=== PATIENT | female | born 1950 | race Caucasian/White ===

== ENCOUNTER 2023-11-30 03:04 | Inpatient (IN) | payer MEDICARE, OTHER, SELFPAY ==
[2023-11-30] VITALS (11 sets, daily range): BP systolic 108–188; BP diastolic 62–124; BMI 32.3
--- NOTE | 2023-11-30 00:43 | ED.GENMED ---
History of Present Illness
<Nas Garcia, DO - Last Filed: 11/30/23 02:00>
General
Chief Complaint: Blood Pressure Problem
Source: patient
Exam Limitations: none
Time Seen by Provider: 11/30/23 00:33
History of Present Illness
History of Present Illness:
See MDM
Past History
<Nas Garcia, DO - Last Filed: 11/30/23 02:00>
Past History
ED Past Medical History: GERD, Hypercholesterolemia and Seizures
ED Past Surgical History: None
Social History
Tobacco: Non-smoker
Alcohol: None
Phy Exam
<Nas Garcia, DO - Last Filed: 11/30/23 02:00>
Physical Exam
Physical Exam:
See MDM
Scores
<Nas Garcia, DO - Last Filed: 11/30/23 02:00>
[id number] Score for Afib Stroke Risk
Age in Years (65=0, 65-74=1, >/=75=2): 65-74
Sex (Female=+1): Female
Congestive Heart Failure History (Yes=+1): No
Hypertension History (Yes=+1): No
Stroke/TIA/Thromboembolism History (Yes=+2): No
Vascular Disease History (Yes=+1): No
Diabetes Mellitus (Yes=+1): No
Score: 2
Anticoagulation Recommendations: Recommend anticoagulation (as validated in nonvalvular fib)
<Chaparro Harris MD, Resident - Last Filed: 11/30/23 22:03>
[id number] Score for Afib Stroke Risk
Score: 2
Anticoagulation Recommendations: Recommend anticoagulation (as validated in nonvalvular fib)
Course
<Nas Garcia, DO - Last Filed: 11/30/23 02:00>
Orders/Labs/Results
Orders:
Orders
11/30/23 00:41
Electrocardiogram (*1) Urgent
Reason for Study: Hypertension, Benign
CT Head W/o Iv Contrast Urgent
Comment:
Reason For Exam: Left side headache
EKG- Treatment ONCE
11/30/23 00:46
Complete Blood Count/With Diff Urgent
Comprehensive Metabolic Panel Urgent
Magnesium Urgent
TSH Reflex To Free T4 Urgent
Troponin I Urgent
11/30/23 00:55
Diltiazem HCl [Cardizem] 20 mg IV NOW STA
11/30/23 01:29
0.9% Sodium Chloride 1000 ml [Nss] 1,000 ml IV BOLUS
Diltiazem 125 mg/125 ml Nss [Cardizem] 125 mg in 125 ml IV NOW
Initial dose in mg/hr, then titrate:: 5
Titrate to keep:: Heart rate 80-100 bpm
Titrate by mg/hr:: 5 mg/hr
Frequency of titrations (minutes):: 15
Maximum dose in mg/hr:: 15
Diltiazem HCl [Cardizem] 20 mg IV NOW STA
11/30/23 01:36
Apixaban [Eliquis] 5 mg PO ONCE ONE
11/30/23 01:49
PTT Urgent
Prothrombin Time Urgent
11/30/23 02:12
Admit/Transfer Patient As Directed
Co-Sign Provider:
Level of Care: Inpatient admission
Assign to:: IVU
Physician / Group: Nick
Diagnosis: A-Fib with RVR
Reason for Hospitalization: A-Fib with RVR
Expected length of stay greater than two midnights?: Yes
ELOS- Estimated Length of Stay in days: 3
I certify the patient meets the requirements for IP care: Yes
Code Status As Directed
Resuscitation Status: Full Code
11/30/23 03:23
Acetaminophen [Tylenol] 650 mg PO Q4HPRN PRN
Diltiazem 125 mg/125 ml Nss [Cardizem] 125 mg in 125 ml IV PER PROTOCOL
Currently infusing. Continue current dose and titrate:: Yes
Titrate to keep:: Heart rate 80-100 bpm
Titrate by mg/hr:: 5 mg/hr
Frequency of titrations (minutes):: 15
Maximum dose in mg/hr:: 15
Lactated Ringers [Lr] 1,000 ml IV 100 mls/hr
Ondansetron Injectable [Zofran] 4 mg IV Q6HPRN PRN
11/30/23 03:23
Echo 2D MMode Doppler [Echo 2D MMode Color/Doppler] Routine
Reason for Study: A-Fib
CARDIOLOGY CONSULT Routine
Consulting Provider: Karthik Mccurdy
Was physician already notified: No
Reason for consult: A-Fib
Consult Notification Routine
Specialty to Notify: Cardiology
Date consulting provider notified: 11/30/23
Time consulting provider notified: 07:01
Notified:: Provider
Comment: via TT
Activity As Directed
Activity Level: Ambulate
With Assistance
EKG with chest pain [ECG as needed] As Directed
ECG as needed for:: Chest Pain
I/O [Intake/ Output] As Directed
Frequency: Per unit guidelines
Vital Signs As Directed
Frequency: Per unit guidelines
Weight As Directed
Frequency: Daily
Oxygen Therapy [O2 Therapy] [RESP] Routine
Titrate/Wean O2 to maintain O2 sat greater than (%): 94
11/30/23 04:22
Basic Metabolic Panel IN AM
Cardiovascular Evaluation IN AM
Complete Blood Count/No Diff IN AM
Glycohemoglobin (HgbA1c) Routine
Troponin I Q6H
11/30/23 06:00
EKG [Electrocardiogram (*1)] IN AM
Reason for Study: Chest Pain
11/30/23 08:00
Apixaban [Eliquis] 5 mg PO BID
Pantoprazole [Protonix] 40 mg PO DAILY
11/30/23 22:00
Famotidine [Pepcid] 40 mg PO HS
Abnormal Lab Results
11/30/23
00:46
MPV 10.6 H fL
(7.4-10.4)
Absolute Monos (auto) 0.7 H 10^3/uL
(0.1-0.6)
Monocytes % 10.0 H %
(1.7-9.3)
Chloride 109 H mmol/L
(98-107)
Carbon Dioxide 21 L mmol/L
(22-30)
BUN 23 H mg/dl
(7-17)
Glucose 122 H mg/dl
(70-99)
AST 37 H U/L
(14-36)
11/30/23 00:46
11/30/23 00:46
Vital Signs
Initial and Last Documented VS:
Initial Vital Signs
Temp Pulse Resp BP Pulse Ox
97.8 F 82 22 188/124 97
11/30/23 00:20 11/30/23 00:20 11/30/23 00:20 11/30/23 00:20 11/30/23 00:20
Last Documented Vital Signs
Temp Pulse Resp BP Pulse Ox
97.6 F 75 16 138/76 97
11/30/23 15:45 11/30/23 15:45 11/30/23 15:45 11/30/23 14:58 11/30/23 15:45
<Chaparro Harris MD, Resident - Last Filed: 11/30/23 22:03>
Orders/Labs/Results
Orders:
Orders
11/30/23 00:41
Electrocardiogram (*1) Urgent
Reason for Study: Hypertension, Benign
CT Head W/o Iv Contrast Urgent
Comment:
Reason For Exam: Left side headache
EKG- Treatment ONCE
11/30/23 00:46
Complete Blood Count/With Diff Urgent
Comprehensive Metabolic Panel Urgent
Magnesium Urgent
TSH Reflex To Free T4 Urgent
Troponin I Urgent
11/30/23 00:55
Diltiazem HCl [Cardizem] 20 mg IV NOW STA
11/30/23 01:29
0.9% Sodium Chloride 1000 ml [Nss] 1,000 ml IV BOLUS
Diltiazem 125 mg/125 ml Nss [Cardizem] 125 mg in 125 ml IV NOW
Initial dose in mg/hr, then titrate:: 5
Titrate to keep:: Heart rate 80-100 bpm
Titrate by mg/hr:: 5 mg/hr
Frequency of titrations (minutes):: 15
Maximum dose in mg/hr:: 15
Diltiazem HCl [Cardizem] 20 mg IV NOW STA
11/30/23 01:36
Apixaban [Eliquis] 5 mg PO ONCE ONE
11/30/23 01:49
PTT Urgent
Prothrombin Time Urgent
11/30/23 02:12
Admit/Transfer Patient As Directed
Co-Sign Provider:
Level of Care: Inpatient admission
Assign to:: IVU
Physician / Group: Nick
Diagnosis: A-Fib with RVR
Reason for Hospitalization: A-Fib with RVR
Expected length of stay greater than two midnights?: Yes
ELOS- Estimated Length of Stay in days: 3
I certify the patient meets the requirements for IP care: Yes
Code Status As Directed
Resuscitation Status: Full Code
11/30/23 03:23
Acetaminophen [Tylenol] 650 mg PO Q4HPRN PRN
Diltiazem 125 mg/125 ml Nss [Cardizem] 125 mg in 125 ml IV PER PROTOCOL
Currently infusing. Continue current dose and titrate:: Yes
Titrate to keep:: Heart rate 80-100 bpm
Titrate by mg/hr:: 5 mg/hr
Frequency of titrations (minutes):: 15
Maximum dose in mg/hr:: 15
Lactated Ringers [Lr] 1,000 ml IV 100 mls/hr
Ondansetron Injectable [Zofran] 4 mg IV Q6HPRN PRN
11/30/23 03:23
Echo 2D MMode Doppler [Echo 2D MMode Color/Doppler] Routine
Reason for Study: A-Fib
CARDIOLOGY CONSULT Routine
Consulting Provider: Karthik Mccurdy
Was physician already notified: No
Reason for consult: A-Fib
Consult Notification Routine
Specialty to Notify: Cardiology
Date consulting provider notified: 11/30/23
Time consulting provider notified: 07:01
Notified:: Provider
Comment: via TT
Activity As Directed
Activity Level: Ambulate
With Assistance
EKG with chest pain [ECG as needed] As Directed
ECG as needed for:: Chest Pain
I/O [Intake/ Output] As Directed
Frequency: Per unit guidelines
Vital Signs As Directed
Frequency: Per unit guidelines
Weight As Directed
Frequency: Daily
Oxygen Therapy [O2 Therapy] [RESP] Routine
Titrate/Wean O2 to maintain O2 sat greater than (%): 94
11/30/23 04:22
Basic Metabolic Panel IN AM
Cardiovascular Evaluation IN AM
Complete Blood Count/No Diff IN AM
Glycohemoglobin (HgbA1c) Routine
Troponin I Q6H
11/30/23 06:00
EKG [Electrocardiogram (*1)] IN AM
Reason for Study: Chest Pain
11/30/23 08:00
Apixaban [Eliquis] 5 mg PO BID
Pantoprazole [Protonix] 40 mg PO DAILY
11/30/23 22:00
Famotidine [Pepcid] 40 mg PO HS
Abnormal Lab Results
11/30/23
00:46
MPV 10.6 H fL
(7.4-10.4)
Absolute Monos (auto) 0.7 H 10^3/uL
(0.1-0.6)
Monocytes % 10.0 H %
(1.7-9.3)
Chloride 109 H mmol/L
(98-107)
Carbon Dioxide 21 L mmol/L
(22-30)
BUN 23 H mg/dl
(7-17)
Glucose 122 H mg/dl
(70-99)
AST 37 H U/L
(14-36)
11/30/23 00:46
11/30/23 00:46
Vital Signs
Initial and Last Documented VS:
Initial Vital Signs
Temp Pulse Resp BP Pulse Ox
97.8 F 82 22 188/124 97
11/30/23 00:20 11/30/23 00:20 11/30/23 00:20 11/30/23 00:20 11/30/23 00:20
Last Documented Vital Signs
Temp Pulse Resp BP Pulse Ox
97.6 F 75 16 138/76 97
11/30/23 15:45 11/30/23 15:45 11/30/23 15:45 11/30/23 14:58 11/30/23 15:45
<Nas Garcia, DO - Last Filed: 11/30/23 02:00>
MDM/Problems Addressed
Differential Diagnosis Includes:
HPI and MDM Narrative:
73-year-old female presenting with feeling of unwell. She is developed a left-sided headache, worsening reflux and generalized weakness and fatigue. Symptoms are not necessarily worse with exertion. She takes her blood pressure at home daily.
She had noted that her blood pressure has been 200/100 which concerned her. She does not take blood pressure medicine
On my exam, patient found to be tachycardic and irregular. EKG performed immediately confirms A-fib with RVR.
Will give IV dose of Cardizem and obtain basic blood work to rule out any evidence of metabolic derangement or hyperthyroidism. Patient has an elevated [id number] score and will start Eliquis
Physical exam
General: Well appearing and non-toxic
HEENT: protecting airway
Neck: appears supple
CV: No evidence of cyanosis. Tachycardic and irregular
Resp: No accessory muscle use
Abd: Non-distended
Extremities: No deformities. No leg edema
Neuro: alert
Psych: Normal affect
Skin: Intact
Problems Addressed including Acute and Chronic Conditions affecting care:
1. New onset A-fib
Acuity: acute
Prognosis: unstable
Details: Will give dose of IV Cardizem and attempt to chemically cardiovert. Will obtain basic blood work to rule out metabolic abnormality or hyperthyroidism
2. Headache
Acuity: acute
Prognosis: stable
Details: Likely in the setting of A-fib and hypertension, will obtain CT head
Updates
After second bolus of IV Cardizem, patient placed on Cardizem drip. Given the uncontrolled A-fib with RVR, will admit. Patient started on Eliquis
Differential Diagnosis (but not limited to): New onset A-fib, hyperthyroidism
Testing considered: D-dimer
Drug therapy (if applicable): OTC meds, please see d/c instruction regarding Rx drugs
Amount and/or Complexity of Data Reviewed
Clinical info obtained from: Patient
External data reviewed: N/A
Labs I independently reviewed (but not limited to): Trop normal
Radiology: the CT scan was personally and independently reviewed. In addition, official CT report reviewed.
Pulse Ox: not hypoxic
EKG independently reviewed: A-fib with RVR, normal axis, no
Home Improvement Contractor: A-fib with RVR
Critical Care: The high probability of a clinically significant, sudden or life threatening deterioration of the cardiovascular system(s) required my full and direct attention, intervention and personal management. The aggregate critical care time
was 33 minutes. This time is in addition to time spent performing reported procedures but includes the following:
[x] Data Review and interpretation
[x] Patient assessment and monitoring of vital signs
[x] Documentation
[x] Medication orders and management
Risk of Complication:
Social Determinants of health: Good social support
Discussed with other providers: Hospitalist
Escalation of Care includes Admit/Obs: Given the uncontrolled A-fib requiring Cardizem drip, will admit
Occasional wrong word or 'sound a like' substitutions may have occurred due to the inherent limitations of voice recognition software. Read the chart carefully and recognize, using context, where substitutions have occurred.
<Nas Garcia, - Last Filed: 11/30/23 02:00>
*Critical Care Note
Total Time (30-74mins, 75-104mins- exclusive of procedures): 33 min
ED Attending Note
<Nas Garcia DO - Last Filed: 11/30/23 02:00>
-
Portions of this chart may have been created with voice recognition software.� Occasional wrong word or��sound alike� substitutions may have occurred due to the inherent limitations of voice recognition software.
Discharge Plan
Departure
Patient Disposition: Admit
Date of Disposition: 11/30/23
Time of Disposition: 02:00
Admit to: Telemetry
Presentation/result/management discussed w/ accepting MD/DO: Hospitalist
Discharge Problem:
Atrial fibrillation with RVR
Interventions
Interventions:
*Risk Screen - Suicide Last Done: 11/30/23 00:20
*General Assessment Last Done: 11/30/23 04:08
*Neglect/Abuse Screening Last Done: 11/30/23 00:20
ED- Fall Risk Assessment Last Done: 11/30/23 01:18
*ED COVID-19 Vaccine History Last Done: 11/30/23 04:08
*Nursing Disposition Last Done: 11/30/23 04:08
ED- Cardiac Assessment Last Done: 11/30/23 01:18
ED- Neurological Assessment Last Done: 11/30/23 01:18
ED- Pulmonary Assessment Last Done: 11/30/23 01:18
Discharge Date and Time
Discharge Date/Time: 11/30/23 03:50
[2023-11-30] MEDS: CARDIZEM 20 MG IV ×2 (00:58→01:38)
[2023-11-30 01:01] LABS: % Basophils 0.7 % (0-2); % Eosinophils 1.2 % (0-6); % Immature Granulocytes 0.3 % (0-0.5); % Lymphocytes 37.6 % (20.5-51.1); % Neutrophils 50.2 % (42.2-75.2); Absolute Basophils 0.1 10^3/uL (0-0.2); Absolute Eosinophils 0.1 10^3/uL (0-0.7); Absolute Lymphocytes 2.6 10^3/uL (1.2-3.4); Absolute Monocytes 0.7 10^3/uL (0.1-0.6); Absolute Neutrophils 3.5 10^3/uL (1.4-6.5); Hemoglobin 13.7 g/dL (12.0-16.0); Mean Corp Hgb Conc. 34.3 g/dL (33.0-37.0); Mean Corpuscular Volume 87.5 fL (81.0-99.0); Mean Platelet Volume 10.6 fL (7.4-10.4); Nucleated Red Blood Cells % 0 %; Platelet Count 252 10^3/uL (130-400); Red Blood Cell Count 4.57 10^6/uL (4.20-5.40); Red Cell Dist. Width 13.2 % (11.5-14.5); White Blood Cell Count 6.9 10^3/uL (4.8-10.8)
[2023-11-30 01:26] LABS: ALT (SGPT) 33 U/L (0-35); AST (SGOT) 37 U/L (14-36); Albumin 4.7 g/dl (3.5-5.0); Alkaline Phosphatase 87 U/L (38-126); Blood Urea Nitrogen 23 mg/dl (7-17); Calcium 10.1 mg/dl (8.4-10.2); Carbon Dioxide 21 mmol/L (22-30); Chloride 109 mmol/L (98-107); Glucose 122 mg/dl (70-99); Potassium 3.8 mmol/L (3.5-5.1); Sodium 142 mmol/L (135-145); Total Bilirubin 0.4 mg/dl (0.2-1.3); Total Protein 7.7 g/dl (6.3-8.2); eGFR > 60.00
[2023-11-30 01:29] LABS: Troponin I < 0.012 ng/ml
[2023-11-30] MEDS: NSS 1000 IV (01:37)
[2023-11-30] MEDS: CARDIZEM 125 IV (01:41)
[2023-11-30] MEDS: ELIQUIS 5 MG PO ×2 (01:51→08:17)
[2023-11-30 02:05] LABS: APTT 25.7 Sec (23.4-35.0); INR 0.94; PT 12.3 Sec (11.4-14.6)
[2023-11-30 02:08] LABS: TSH Reflex To Free T4 4.14 uIU/ml (0.47-4.68)
--- NOTE | 2023-11-30 02:15 | HPS.HSE ---
Family Physician
-
Family Physician: NOT KNOW UNKNOWN - PT DOES
Chief Complaint
-
High blood pressure
History of Present Illness
Patient is a 73y F with PMH significant for GERD who presents to ED complaining of high blood pressure and 'not feeling right'. Patient states that she has been feeling 'off' for the past 24 hours or so. She has mild headache. No chest pain,
palpitations, dyspnea, etc. No cough, fevers / chills, GI or complaints. Patient has been checking her BP at home due to her symptoms and noted that it was elevated over the past 24 hours. This evening, it was as high as 250/110 which prompted
her to present to the ED for further evaluation.
Patient has no history of hypertension and takes no BP medications.
On arrival to the ED, patient is noted to be in A-Fib with rapid ventricular rate to the 170s.
Patient has a L maxillary bone graft done two weeks ago. She took Advil for a few days post-procedure, but no other new medications.
Medical History
Past Medical History
Past Medical History: Reports Other
Additional Past Medical History:
GERD
Osteoporosis
Obesity
Past Surgical History: Reports Other
Additional Past Surgical History:
Foot Surgery
Left Maxillary Bone Graft (2 weeks ago)
Social History
Tobacco: Former Smoker (Quit smoking about 10 years ago. Approx 30 pack years total use.)
Alcohol: Occasional (One drink weekly.)
Drug: None
Family History
Family History: Other (Mother: Breast / Ovarian Cancer Father: 'Heart Aneurysm')
Allergies / Home Medications
Allergies reflects when Allergies were last updated in [employer].
Home Medications with original date entered in [employer]
Allergy/Medication List:
Allergies
Allergy/AdvReac Type Severity Reaction Status Date / Time
Itelzjo-VRM-PuD Reductase Allergy Unknown Verified 11/30/23 00:24
Inhibitor
Home Medications
alendronate 70 mg tablet (Fosamax) 70 mg PO QWEEK 11/30/23
famotidine 20 mg chewable tablet 20 mg PO PRN PRN Heartburn 11/30/23
multivitamin 1 tab PO DAILY 11/30/23
omeprazole 40 mg capsule,delayed release 40 mg PO DAILY 11/30/23
Review of Systems
-
History Source: Patient
A 12 point ROS was completed and negative except as noted: Yes
Constitutional: Reports Fatigue; Denies Fever or Chills
EENT: Denies Sore Throat
Respiratory: Denies Cough or Trouble Breathing
Cardiac: Denies Chest Pain, Diaphoresis, Palpitations or Syncope
Abdomen/GI: Denies Abdominal Pain, Nausea, Vomiting or Diarrhea
: Denies Dysuria or Frequency
Musculoskeletal: Reports Edema; Denies Joint Pain
Neurological: Reports Headache; Denies Dizzy, Weakness or Numbness
Psych: Denies Depression or Anxiety
Physical Exam
Vital Signs
Vital Signs
Temp Pulse Resp BP Pulse Ox
97.8 F 139 19 154/82 97
11/30/23 00:20 11/30/23 02:00 11/30/23 02:00 11/30/23 02:00 11/30/23 00:20
Physical Exam
General: Other (73y F in no acute distress.)
HEENT: Moist mucous membranes and PERRLA
Respiratory: Clear; No Wheezes, Rales or Rhonchi
Cardiac: S1/S2, Irregular Rhythm and Tachycardia; No Murmur
GI: Soft, Non Tender, Non Distended and Normal Bowel Sounds
Musculoskeletal: No Clubbing, No Cyanosis and Other (Trace edema at the ankles bilaterally.)
Neuro: AO x 3
Laboratory Results
-
11/30/23 00:46
11/30/23 00:46
Laboratory Results
PT 12.3 Sec (11.4-14.6) 11/30/23 01:49
INR 0.94 11/30/23 01:49
APTT 25.7 Sec (23.4-35.0) 11/30/23 01:49
Total Bilirubin 0.4 mg/dl (0.2-1.3) 11/30/23 00:46
AST 37 U/L (14-36) H 11/30/23 00:46
ALT 33 U/L (0-35) 11/30/23 00:46
Alkaline Phosphatase 87 U/L (38-126) 11/30/23 00:46
Troponin I < 0.012 ng/ml 11/30/23 00:46
Impression/Plan
-
A/P: Patient is a 73y F with PMH significant for GERD who presents to ED complaining of not feeling well and elevated BP.
Atrial Fibrillation (new) with Rapid Ventricular Response
- Admit to IVU for further evaluation and treatment.
- Continue IV Cardizem and titrate as needed for rate control.
- Continue Eliquis for stroke risk reduction.
- Cardiology evaluation for additional recommendations / options.
- Monitor for any new symptoms / complaints.
- Check Echo, TFTs, etc.
Elevated BP
- BP is improving coincident with rate control / Cardizem.
- Adjust meds as needed for rate / rhythm control and follow BP.
- Add additional agents if needed for BP control.
GERD
- Patient reports recent increase in chronic GERD symptoms.
- Continue daily PPI.
- Pepcid at HS - patient states that she takes Pepcid AC at home 'as needed' - but this is basically every night before bed.
- Follow for any changes.
Obesity due to excess calories
- Affects all aspects of care.
- Encourage healthy diet and increased exercise with goal of weight loss.
DVT Prophylaxis: On Eliquis
Code Status: Full
[2023-11-30 04:35] LABS: Hematocrit 38.7 % (37.0-47.0); Hemoglobin 13.3 g/dL (12.0-16.0); Mean Corp Hgb Conc. 34.4 g/dL (33.0-37.0); Mean Corpuscular Hgb 30.4 pg (27.0-31.0); Mean Corpuscular Volume 88.6 fL (81.0-99.0); Mean Platelet Volume 10.9 fL (7.4-10.4); Platelet Count 263 10^3/uL (130-400); Red Blood Cell Count 4.37 10^6/uL (4.20-5.40); Red Cell Dist. Width 13.1 % (11.5-14.5); White Blood Cell Count 7.2 10^3/uL (4.8-10.8)
[2023-11-30 04:58] LABS: Carbon Dioxide 21 mmol/L (22-30); Chloride 113 mmol/L (98-107); Estimated Creatinine Clearance 80 ml/min; Glucose 120 mg/dl (70-99); Potassium 4.3 mmol/L (3.5-5.1); Sodium 142 mmol/L (135-145); Total Cholesterol 266 mg/dl (50-199); eGFR > 60.00
[2023-11-30 05:08] LABS: Blood Urea Nitrogen 23 mg/dl (7-17); Calcium 9.4 mg/dl (8.4-10.2); HDL Cholesterol 60 mg/dl; LDL Cholesterol, Calculated 171 mg/dl; Triglyceride 176 mg/dl (10-149); Troponin I < 0.012 ng/ml; Very Low Density Lipoprotein 35 mg/dl (0-30)
[2023-11-30] MEDS: LR 1000 IV (05:14)
[2023-11-30] MEDS: TYLENOL 650 MG PO ×2 (05:27→10:39)
--- NOTE | 2023-11-30 05:41 | PTCARENOTE ---
Patient received from ED via stretcher to room 7007. Patient ambulated independently without difficulty. Denies SOB, chest pain, and dizziness. Patient placed on monitor, in Afib with RVR, HR 110-160. Asymptomatic of elevated HR. Cardizem drip
infusing at 15mg/hr. Patient complaining of 5/10 headache pain, Tylenol administered, see MAR. EKG and AM labs obtained. Patient verbalized understanding of plan of care and remains NPO. Patient oriented to room, call aviles within reach.
[2023-11-30] MEDS: PROTONIX 40 MG PO (08:17)
--- NOTE | 2023-11-30 08:50 | PTCARENOTE ---
Patient appears to have converted back into SR after having minor coughing spell during this RN's assessment. Will obtain EKG once order placed. Cardizem gtt turned off as patient's HR is now in 70's-80's.
--- NOTE | 2023-11-30 10:00 | W.PN.HOSP.TC ---
Addendum entered and electronically signed by Kristian Mueller MD 11/30/23 20:21:
Attending Addendum:
I saw and evaluated the patient. I reviewed the resident�s note and agree with findings and plan as documented in the resident�s note. Sub: patient feels good and ready to go home. Reverted back to NSR this am. Denies any sxs. Full 12 point ROS
reviewed and negative except as documented Exam: Vitals reviewed in chart GEN-NAD heart RRR lungs clear abd soft LE no edema
Atrial Fibrillation (new) with Rapid Ventricular Response
- now in NSR
- covert to PO cardizem from gtt
Continue Eliquis for stroke risk reduction.
HTN
- cont cardizem PO and f/u PCP
GERD
- Continue daily PPI.
- Follow for any changes as OP
Obesity due to excess calories
- Affects all aspects of care.
- Encourage healthy diet and increased exercise with goal of weight loss.
DVT Prophylaxis: On Eliquis
Code Status: Full
Dispo DC home with PCP and cards f/u
Time spent coordinating care, DC planning, review of DC plan of care with resident, transition of care, review of records, med rec, consults, notes, d/w consultants/cardiology, nursing, family, and CM� 35 mins
Original Note:
Today's Communication/Plan
-
- Fu with PCP to address chronic HTN
Assessment / Plan
Assessment / Plan
Patient is a 73y F with PMH significant for GERD who presents to ED complaining of headache and elevated BP.
#Atrial Fibrillation (new) with Rapid Ventricular Response
- Resolved- sinus rythm
- stop Cardizem drip- switched to PO
- Continue Eliquis for stroke risk reduction.
- Cardiology consult appreciated
#Elevated BP
- BP improved with cardizem
- fu with pcp/cardio recommended
#GERD
- Patient reports recent increase in chronic GERD symptoms.
- Continue daily PPI.
#Obesity due to excess calories
- Affects all aspects of care.
- Encourage healthy diet and increased exercise with goal of weight loss.
DVT Prophylaxis: On Eliquis
Code Status: Full
Dispo to Home
Anticipated Discharge: Today
Subjective/Interval History
-
Date of Service: November 30, 2023
Objective Data
-
Labs:
Laboratory Results
11/30/23 11/30/23 11/30/23
00:46 01:49 04:22
WBC 6.9 7.2
Hgb 13.7 13.3
Hct 40.0 38.7
Plt Count 252 263
PT 12.3
INR 0.94
APTT 25.7
Sodium 142 142
Potassium 3.8 4.3
Chloride 109 H 113 H
Carbon Dioxide 21 L 21 L
BUN 23 H 23 H
Creatinine 0.9 0.7
Glucose 122 H 120 H
Calcium 10.1 9.4
Total Bilirubin 0.4
AST 37 H
ALT 33
Alkaline Phosphatase 87
Vital Signs:
Vital Signs
Temp Pulse Resp BP Pulse Ox
98.2 F 143 18 108/62 96
11/30/23 07:42 11/30/23 08:00 11/30/23 07:42 11/30/23 07:45 11/30/23 07:42
Review of Systems
-
History Source: Patient
Constitutional: Reports No Symptoms
Respiratory: Denies Cough
Cardiac: Denies Chest Pain
Abdomen/GI: Denies Abdominal Pain
Genitourinary: Denies Dysuria
Skin: Reports No Symptoms
Physical Exam
-
General: Well Developed, Well Nourished and No Apparent Distress
HEENT: Normocephalic and Atraumatic
Respiratory: Clear to Auscultation
Cardiac: Regular Rhythm and S1/S2
GI: Soft and Nontender
Skin: Warm and Dry
Neuro: Awake, Alert, Oriented and AO x 3
Psych: Calm
Data Reviewed
-
Labs: Labs Reviewed by me, Discussed with Physician and Discussed with Patient
--- NOTE | 2023-11-30 10:10 | CON.CAR ---
Addendum entered and electronically signed by Karthik Mccurdy MD 11/30/23 12:33:
Will try Zetia for marked hypercholesterolemia. She has been statin intolerant.
Addendum entered and electronically signed by Karthik Mccurdy MD 11/30/23 12:32:
I saw and examined the patient.
The PASTRY MIXER or PA's note was reviewed and I agree with the note.
Comment: General: Well developed, well nourished in NAD.
Neck: Supple, no JVD, HJR, carotids +2 B/L, no bruits bilaterally.
Heart: Non displaced PMI, RRR, no murmurs, No S3, S4, no rubs.
Lungs: Clear to auscultation bilaterally, no wheeze, rhonchi, rubs bilaterally,
normal expiratory phase.
Abdomen: Normal bowel sounds, soft, non-tender, non-distended.
Extremities: No clubbing, cyanosis or edema bilaterally.
Neuro: Grossly nonfocal, awake, alert and oriented x3.
Adrianna has a history of GERD, seizure disorder with last seizure 5 years ago, hyperlipidemia with statin intolerance. She presented with complaints of hypertension. She also did not feel well for the past 2 days. She was found to be in rapid A-fib
in the ER. She has spontaneously converted to sinus rhythm. She denies chest pain, short breath, or palpitations. Will discontinue IV Cardizem and start oral Cardizem. Will start Eliquis given CHADS2 score of 3. Will check echocardiogram.
Stable cardiology status for discharge if echocardiogram is okay.
Original Note:
Consultation
Consultation Request
Date/Time Consultation Performed: 11/30/23
Requesting Provider: Dr. Romero
Performing Provider: Adina Raya PA-C for Dr. Mccurdy
Reason for Consultation: afib with RVR
Medical History
-
Chief Complaint: elevated BP
History of Present Illness:
Patient is a 73-year-old female with past medical history of GERD, osteoporosis, history of seizures with most recent being 5 years ago, recent dental procedure with bone graft 2 weeks ago, statin intolerance who presented to [facility] due
to elevated blood pressure. She reports this past Monday 11/27 she was not feeling right. She reports significant reflux which has been worsening, she is scheduled to see GI 01/2024. Then yesterday she noted her blood pressure was elevated and would
not come down. She also states she had no energy. Around 11 PM she woke up and did not feel right. She checked her blood pressure which was elevated at 254/114 and had headache. She came to the ER for further evaluation of this. On arrival she
was noted to be in A-fib with rapid ventricular response, which is new diagnosis for patient of unclear duration. She was started on IV Cardizem gtt. This morning she had a small coughing fit and spontaneously converted to sinus rhythm with this.
Cardiology consulted for further evaluation of new afib.
PMH:
Recent dental procedure with bone graft approximately 2 weeks ago
GERD
Osteoporosis
History of seizures with most recent being 5 years ago
Fall with multiple vertebral fractures in setting of above
HLD with history of statin intolerance
Past Medical History
Past Medical History: Other (in HPI)
Social History
Tobacco: Former Smoker
Alcohol: Occasional
Personal:
Living: With Family
Family History
Family History: Cancer (in mother) and Other (father had aneurysm at 57)
Allergies / Home Medications
Allergy/AdvReac Type Severity Reaction Status Date / Time
Kihwzha-XOH-CsQ Reductase Allergy Unknown Verified 11/30/23 00:24
Inhibitor
�Medication �Instructions �Recorded �Confirmed �Type
alendronate 70 mg tablet (Fosamax) 70 mg PO QWEEK 11/30/23 11/30/23 History
famotidine 20 mg chewable tablet 20 mg PO PRN PRN Heartburn 11/30/23 11/30/23 History
multivitamin 1 tab PO DAILY 11/30/23 11/30/23 History
omeprazole 40 mg capsule,delayed 40 mg PO DAILY 11/30/23 11/30/23 History
release
Review of Systems
-
History Source: Patient
All other systems: Negative unless noted
Physical Exam
Vital Signs
Temp Pulse Resp BP Pulse Ox
98.2 F 143 18 108/62 96
11/30/23 07:42 11/30/23 08:00 11/30/23 07:42 11/30/23 07:45 11/30/23 07:42
Lab Results
11/30/23 04:22
11/30/23 04:22
Troponin I Cancelled 11/30/23 15:23
Physical Exam
General: No Apparent Distress and Comfortable
HEENT: Normocephalic, Anicteric and Moist Mucous Membranes
Respiratory: Clear and Non Labored Respirations
Cardiac: S1/S2 and Regular Rhythm
GI: Soft, Non Tender, Non Distended and Normal Bowel Sounds
Musculoskeletal: No Clubbing, No Cyanosis and No Edema
Skin: Warm and Dry
Neuro: AO x 3
Impression / Plan
-
Primary Crusher Foreman: seen remotely by Dr. Rey, patient's sees Dr. Brown
Assessment:
Hypertensive urgency
Atrial fibrillation with RVR, new diagnosis of unclear duration
GERD
Osteoporosis
Recent dental procedure with bone graft approximately 2 weeks ago
History of seizures with most recent being 5 years ago
History of fall with multiple vertebral fractures in setting of above
HLD with history of statin intolerance
Plan:
-Patient presented due to elevated blood pressures at home, and found to be in atrial fibrillation with RVR, new diagnosis of unclear duration
-head CT negative for acute intracranial abnormalities
-Fortunately she spontaneously converted to sinus rhythm this morning and remains in sinus at this time
-Will stop IV Cardizem gtt and transition to po cardizem 120mg daily. BPs much improved this AM
-[id number] score of 3 for age, female, HTN. continue eliquis 5mg BID. will have CM assess cost to patient
-TSH WNL
-check echo
-she complains of severe heart burn symptoms. no symptoms with exertion, mostly at night or after eating. trops serially negative. encouraged GI follow up which she has scheduled for 01/2024. continue PPI
-LDL suboptimal at 171. she has history of statin intolerance. we discussed addition of zetia vs consideration for PCSK9 inhibitor
-will arrange OP cardiac follow up, would consider for EP evaluation
-d/w nursing
Data Reviewed
-
EKG: Tracing Personally Visualized and interpreted
CT Scan: Report Reviewed by me
Labs: Labs Reviewed by me
Old Records: Reviewed
[2023-11-30 11:09] LABS: Glycohemoglobin (HgbA1c) 5.9 % (4.0-5.6)
--- NOTE | 2023-11-30 11:33 | CM ---
Reviewed chart. Met with Mrs. Pal to review discharge plans. She states prior to admission she resides with her spouse in a two story home with three steps to enter. She states she has a full flight of steps to get to bedroom/full bathroom.
She states she has a powder room on the first floor. She states prior to admission she was independent with ambulation and adls. She states she does not have any DME in the home. She states she has a prescription plan with [facility].
Telephone call to [facility] ([phone]) to check on co-pay for Eliquis 5 mg po bid. Her first script would be $577.03 because she has a $545.00 deductible that has not been met. After her deductible has been met she would pay 19% of the
cost of the medication. He co-pay would be $95.00 a month. Leobardo states she can call ( ) to see if they can get Eliquis down to a tier 2 medication and she would not have a co-pay. Also gave her the [facility] Program and Eliquis Patient
Assistance program to see if she will qualify for any of the programs. Will review with her. She can use the one month free coupon. Placed the coupon in her red discharge folder. Medical work-up in progress. The discharge plan is to return home
with her spouse when medically stable.
[2023-11-30] MEDS: CARDIZEM CD 120 MG PO (12:21)
--- NOTE | 2023-11-30 14:46 | W.DCSUMMARY ---
Addendum entered and electronically signed by Kristian Mueller MD 11/30/23 20:22:
Read, reviewed, and agree. See same day progress note for additional details.
Jigar Mueller MD
Original Note:
Documented by User: Chaparro Harris MD, Resident 11/30/23 15:16
Discharge Summary
Discharge Data
Date of Admission: 11/30/23
Date of Discharge: 11/30/23
-
Pending Results: No
Discharge Plan
-
Patient Disposition: Home (Routine Discharge)
Discharge Diagnosis/Procedures: Atrial fibrillation with RVR
Condition: Good
Diet: No restrictions and As tolerated
Activity: No restrictions
Driving Restrictions: As prior to admission
Bathing Restrictions: None
Referrals:
Francesca Gonsales PA-C [Specified Professional Personl] - 12/14/23 1:20 pm (You have a cardiology follow-up appointment at the [place] office with Dr. Brown's physician lpn medical assistant, Francesca. Please call with questions)
Jose Roberto De La Cruz MD [Active] - in less than 1 week
Additional Discharge Medication Instructions: Take diltiazem 120 mg by mouth once daily
Take Eliquis 5 mg tablets by mouth twice daily
Prescriptions:
New
diltiazem HCl 120 mg Capsule,Extended Release 24hr
120 mg PO DAILY Qty: 30 0RF
Eliquis 5 mg Tablet
5 mg PO BID Qty: 60 0RF
Continued
multivitamin Tablet
1 tab PO DAILY
omeprazole 40 mg Capsule,Delayed Release(Dr/Ec)
40 mg PO DAILY
alendronate [Fosamax] 70 mg Tablet
70 mg PO QWEEK
Rx Instructions:
Tuesday
famotidine 20 mg Tablet,Chewable
20 mg PO PRN PRN (Reason: Heartburn)
Discharge Orders:
Discharge Patient (As Directed); Ordered 11/30/23
Ordered By: Chaparro Harris
Care Plan Goals
Care Plan Goals:
Problem: Readiness for enhanced knowledge related to diagnosis and treatment plan
Goal: Understand your diagnosis and treatment plan needs, including medications if applicable.
Instructions: Know your diagnosis, underlying causes and treatment plan options, including medications if applicable. Consult with your health care team to learn about your diagnosis and treatment plan, including medications if applicable.
Discharge Date and Time
Discharge Date/Time: 11/30/23 16:13
Print Language: ALGERIAN

Documented by User: Kristian Mueller MD 11/30/23 20:16
Discharge Summary
Discharge Data
Date of Admission: 11/30/23
Date of Discharge: 11/30/23
Discharge Plan
-
Patient Disposition: Home (Routine Discharge)
Discharge Diagnosis/Procedures: Atrial fibrillation with RVR
Condition: Good
Diet: No restrictions and As tolerated
Activity: No restrictions
Driving Restrictions: As prior to admission
Bathing Restrictions: None
Referrals:
Francesca Gonsales PA-C [Specified Professional Personl] - 12/14/23 1:20 pm (You have a cardiology follow-up appointment at the [place] office with Dr. Brown's physician lpn medical assistant, Francesca. Please call with questions)
Jose Roberto De La Cruz MD [Active] - in less than 1 week
Additional Discharge Medication Instructions: Take diltiazem 120 mg by mouth once daily
Take Eliquis 5 mg tablets by mouth twice daily
Prescriptions:
New
diltiazem HCl 120 mg Capsule,Extended Release 24hr
120 mg PO DAILY Qty: 30 0RF
Eliquis 5 mg Tablet
5 mg PO BID Qty: 60 0RF
Continued
multivitamin Tablet
1 tab PO DAILY
omeprazole 40 mg Capsule,Delayed Release(Dr/Ec)
40 mg PO DAILY
alendronate [Fosamax] 70 mg Tablet
70 mg PO QWEEK
Rx Instructions:
Tuesday
famotidine 20 mg Tablet,Chewable
20 mg PO PRN PRN (Reason: Heartburn)
Discharge Orders:
Discharge Patient (As Directed); Ordered 11/30/23
Ordered By: Chaparro Harris
Care Plan Goals
Care Plan Goals:
Problem: Readiness for enhanced knowledge related to diagnosis and treatment plan
Goal: Understand your diagnosis and treatment plan needs, including medications if applicable.
Instructions: Know your diagnosis, underlying causes and treatment plan options, including medications if applicable. Consult with your health care team to learn about your diagnosis and treatment plan, including medications if applicable.
Discharge Date and Time
Discharge Date/Time: 11/30/23 16:13
Print Language: ALGERIAN
--- NOTE | 2023-11-30 16:10 | PTCARENOTE ---
Went over discharge instructions with patient. Removed IV and Telemetry Pack.
[2023-12-01 19:46] LABS: Hepatitis C Antibody Negative (Negative)
== END 2023-11-30 16:13 | disposition home or self-care (01) | DRG 310 ==
LOC: IVU 03:04
PROVIDERS: ADMITTING PHYSICIAN Hospitalist; ATTENDING PHYSICIAN Family Medicine; CONSULT PHYSICIAN Internal Medicine Cardiovascular Disease; EMERGENCY PHYSICIAN Student in an Organized Health Care Education/Training Program
DX: I48.91 Unspecified atrial fibrillation (principal); I16.0 Hypertensive urgency; I10 Essential (primary) hypertension; E78.00 Pure hypercholesterolemia, unspecified; K21.9 Gastro-esophageal reflux disease without esophagitis; R51.9 Headache, unspecified; M81.0 Age-related osteoporosis without current pathological fracture; E66.09 Other obesity due to excess calories; Z68.32 Body mass index [BMI] 32.0-32.9, adult; Z87.891 Personal history of nicotine dependence; Z88.8 Allergy status to other drugs, medicaments and biological substances
CPT/HCPCS: 70450; 80048; 80053; 80061; 83036; 83735; 84443; 84484; 85025; 85027; 85610; 85730; 86803; 93005; 93306; 96374; 96376; 99291; Q9950

== ENCOUNTER → 2023-12-27 12:36 | Outpatient (REF) | payer MEDICARE, OTHER, SELFPAY | LOC: HWRAD 12:36 | PROVIDERS: ATTENDING PHYSICIAN Obstetrics & Gynecology Gynecology; FAMILY PHYSICIAN Family Medicine | DX: Z12.31 Encounter for screening mammogram for malignant neoplasm of breast (principal); M81.0 Age-related osteoporosis without current pathological fracture | CPT/HCPCS: 77063; 77067; 77080 ==

== ENCOUNTER 2024-02-01 00:04 | Emergency (ER) | payer MEDICARE, OTHER, SELFPAY ==
[2024-02-01 00:07] VITALS: BP 173/109
[2024-02-01 00:22] VITALS: BMI 32.2
[2024-02-01 00:37] VITALS: BP 133/87
[2024-02-01 00:47] LABS: % Basophils 0.6 % (0-2); % Eosinophils 0.9 % (0-6); % Immature Granulocytes 0.4 % (0-0.5); % Lymphocytes 38.7 % (20.5-51.1); % Monocytes 9.4 % (1.7-9.3); Absolute Eosinophils 0.1 10^3/uL (0-0.7); Absolute Lymphocytes 2.1 10^3/uL (1.2-3.4); Absolute Monocytes 0.5 10^3/uL (0.1-0.6); Absolute Neutrophils 2.7 10^3/uL (1.4-6.5); Hematocrit 38.3 % (37.0-47.0); Hemoglobin 13.1 g/dL (12.0-16.0); Mean Corp Hgb Conc. 34.2 g/dL (33.0-37.0); Mean Corpuscular Hgb 30.5 pg (27.0-31.0); Mean Corpuscular Volume 89.3 fL (81.0-99.0); Mean Platelet Volume 10.8 fL (7.4-10.4); Nucleated Red Blood Cells % 0 %; Platelet Count 232 10^3/uL (130-400); Red Blood Cell Count 4.29 10^6/uL (4.20-5.40); Red Cell Dist. Width 13.3 % (11.5-14.5); White Blood Cell Count 5.3 10^3/uL (4.8-10.8)
[2024-02-01 00:59] LABS: ALT (SGPT) 25 U/L (0-35); AST (SGOT) 31 U/L (14-36); Albumin 4.1 g/dl (3.5-5.0); Alkaline Phosphatase 81 U/L (38-126); Blood Urea Nitrogen 26 mg/dl (7-17); Calcium 9.4 mg/dl (8.4-10.2); Carbon Dioxide 25 mmol/L (22-30); Chloride 109 mmol/L (98-107); Estimated Creatinine Clearance 62 ml/min; Glucose 107 mg/dl (70-99); Potassium 4.3 mmol/L (3.5-5.1); Sodium 145 mmol/L (135-145); Total Bilirubin 0.3 mg/dl (0.2-1.3); Total Protein 6.7 g/dl (6.3-8.2); eGFR > 60.00
[2024-02-01 01:00] VITALS: BP 138/84
--- NOTE | 2024-02-01 01:01 | ED.GENMED ---
History of Present Illness
General
Chief Complaint: Heart Rate Problem
Source: patient and family
Exam Limitations: none
Time Seen by Provider: 02/01/24 00:51
Nursing documentation reviewed up to this point in time: agreed with
History of Present Illness
History of Present Illness:
This a pleasant 73-year-old female with a history of atrial fibrillation who presents with heart palpitations consistent with atrial fibrillation. She does follow with Dr. Haley and is due for Holter monitor placement in the next week. Patient
states that she has had several episodes of palpitations recently necessitating this monitor. Patient is on Eliquis and has not missed any doses. She states that she distinctly is aware when she goes into atrial fibrillation. At 1045 this evening
she felt the palpitations so she came into the emergency department. Upon arrival to the emergency department, her symptoms seem to resolve. This was confirmed with an EKG. Patient also takes diltiazem rate control.
Past History
Past History
ED Past Medical History: GERD, Hypercholesterolemia and Seizures
ED Past Surgical History: None
Social History
Tobacco: Non-smoker
Alcohol: None
Review of Systems
Review of Systems
Allergies reviewed?: Yes
Other source history: family
All Other Systems: ROS reviewed and negative except as documented in HPI and ROS
Constitutional: Reports no symptoms
EENT: Reports no symptoms
Respiratory: Reports no symptoms
Cardiac: Reports palpitations
ABD/GI: Reports no symptoms
: Reports no symptoms
Musculoskeletal: Reports no symptoms
Skin: Reports no symptoms
Neurological: Reports no symptoms
Endocrine: Reports no symptoms
Hematologic/Lymphatic: Reports no symptoms
Psychiatric: Reports anxiety
Phy Exam
General Physical Exam
General Presentation: well appearing and no apparent distress
General Skin: warm and dry
General Habitus: normal
General Mental: alert
General Hydration: appears well hydrated
ENT Exam
ENT Exam: EOMI, pharynx normal, neck supple and normocephalic
Eye Exam
Eye Exam: PERRL, cornea clear and conjunctiva normal
Cardiovascular Exam
Cardiovascular Exam: regular rate/rhythm, no edema, no murmur and normal peripheral pulses
Pulmonary Exam
Pulmonary Exam: lungs clear, no respiratory distress, no rales, no crackles, no rhonchi, no stridor, no wheezing and no cough
Gastrointestinal Exam
Gastrointestinal Exam: normal bowel sounds, non tender, soft, no organomegaly, no pulsatile mass and non distended
Neurological Exam
Neurological Exam: alert, oriented x3, no motor deficits and speech normal
Musculoskeletal Exam
Musculoskeletal Exam: full ROM and no edema
Skin Exam
Skin Exam: normal color, warm/dry, no rash and no petechia
Psychiatric Exam
Psychiatric Exam: normal mood/affect
Course
Orders/Labs/Results
Orders:
Orders
02/01/24 00:12
EKG [Electrocardiogram (*1)] Urgent
Reason for Study: Palpitations
02/01/24 00:13
EKG- Treatment ONCE
02/01/24 00:36
Complete Blood Count/With Diff Urgent
Comprehensive Metabolic Panel Urgent
Troponin I Urgent
02/01/24 00:58
EKG [Electrocardiogram (*1)] Urgent
Reason for Study: Atrial Fibrillation
EKG- Treatment ONCE
Abnormal Lab Results
02/01/24
00:36
MPV 10.8 H fL
(7.4-10.4)
Monocytes % 9.4 H %
(1.7-9.3)
Chloride 109 H mmol/L
(98-107)
BUN 26 H mg/dl
(7-17)
Glucose 107 H mg/dl
(70-99)
02/01/24 00:36
02/01/24 00:36
Vital Signs
Initial and Last Documented VS:
Initial Vital Signs
Temp Pulse Resp BP Pulse Ox
97.7 F 130 18 173/109 100
02/01/24 00:07 02/01/24 00:07 02/01/24 00:07 02/01/24 00:07 02/01/24 00:07
Last Documented Vital Signs
Temp Pulse Resp BP Pulse Ox
97.7 F 90 17 138/84 95
02/01/24 00:07 02/01/24 01:07 02/01/24 01:00 02/01/24 01:00 02/01/24 01:00
*Critical Care Note
Total Time (30-74mins, 75-104mins- exclusive of procedures): Not Applicable
Update Note
Update Note:
Patient is on Eliquis. She is on diltiazem.
She is asymptomatic at this time.
Initial EKG shows normal sinus rhythm rate of 92 with normal intervals, normal axis. When compared with previous EKG dated November 30, 2023, there are similar morphology noted.
Repeat EKG shows normal sinus rhythm at 82 with normal intervals, normal axis. No evidence of acute ischemia present.
ED Attending Note
-
Portions of this chart may have been created with voice recognition software.� Occasional wrong word or��sound alike� substitutions may have occurred due to the inherent limitations of voice recognition software.
Discharge Plan
Departure
Patient Disposition: Home (Routine Discharge)
Date of Disposition: 02/01/24
Time of Disposition: 01:14
Patient with high blood pressure during this ER visit?: Yes
Condition: Good
Discharge Problem:
Palpitations
Instructions: Palpitations (DC), BLOOD PRESSURE
Prescriptions:
No Action
multivitamin Tablet
1 tab PO DAILY
omeprazole 40 mg Capsule,Delayed Release(Dr/Ec)
40 mg PO DAILY
alendronate [Fosamax] 70 mg Tablet
70 mg PO QWEEK
Rx Instructions:
Tuesday
famotidine 20 mg Tablet,Chewable
20 mg PO PRN PRN (Reason: Heartburn)
diltiazem HCl 120 mg Capsule,Extended Release 24hr
120 mg PO DAILY Qty: 30 0RF
Eliquis 5 mg Tablet
5 mg PO BID Qty: 60 0RF
Referrals:
Raquel Brown DO [Active] - Keep scheduled appt
Yvette Yeh PA [Family Provider] -
Activity Restrictions/Additional Instructions:
Please continue to take your Eliquis as directed
It was a pleasure meeting you and taking part in your care. We hope for your continued healing and wellness.
Please read discharge instructions in their entirety. However, they are for general education and may not describe your exact diagnosis at discharge. Information on your ER visit and medical conditions were discussed with you along with appropriate
follow up information...
If indicated, please take your medications as instructed and indicated on discharge paperwork.
Please schedule a follow up appointment as directed. Call to schedule an appointment
Please return to the emergency department with ANY change in, persisting, or worsening of symptoms. If any of your symptoms do not improve, or persist, or become more severe within 6-12 hours, please return to the emergency department for further
care.
Please return to the emergency department if you develop a headache, neck pain/stiffness, fever greater than 100.4F, chest pain, shortness of breath, persistent nausea, vomiting, slurred speech, difficulty walking, numbness/tingling, weakness, signs
of infection or any other symptoms that are worrisome to you.
If you have any questions or concerns please do not hesitate to call the Hospital at or E-mail me directly at [email or web address]
Interventions
Interventions:
*Risk Screen - Suicide Last Done: 02/01/24 00:07
*General Assessment Last Done: 02/01/24 00:07
*Neglect/Abuse Screening Last Done: 02/01/24 00:07
ED- Fall Risk Assessment Last Done: 02/01/24 00:22
*ED COVID-19 Vaccine History Last Done: 02/01/24 00:07
*Nursing Disposition Last Done: 02/01/24 01:37
ED- Cardiac Assessment Last Done: 02/01/24 00:22
ED- Pulmonary Assessment Last Done: 02/01/24 00:22
Discharge Date and Time
Discharge Date/Time: 02/01/24 01:38
Print Language: FAROESE
[2024-02-01 01:28] LABS: Troponin I < 0.012 ng/ml
== END 2024-02-01 01:38 | disposition home or self-care (01) ==
LOC: EMR 00:04
PROVIDERS: Emergency Medicine; EMERGENCY PHYSICIAN Student in an Organized Health Care Education/Training Program; FAMILY PHYSICIAN Family Medicine
DX: R00.2 Palpitations (principal); I48.91 Unspecified atrial fibrillation; Z79.01 Long term (current) use of anticoagulants
CPT/HCPCS: 99284; 80053; 84484; 85025; 93005

== ENCOUNTER → 2024-03-14 06:24 | Day surgery (SDC) | payer MEDICARE, OTHER, SELFPAY | LOC: GI 06:24 | PROVIDERS: ATTENDING PHYSICIAN Internal Medicine Gastroenterology | DX: R12 Heartburn (principal); K44.9 Diaphragmatic hernia without obstruction or gangrene; K57.10 Diverticulosis of small intestine without perforation or abscess without bleeding; Q39.9 Congenital malformation of esophagus, unspecified | CPT/HCPCS: 43235 ==

== ENCOUNTER → 2024-03-30 10:12 | Outpatient (REF) | payer MEDICARE, OTHER, SELFPAY | LOC: RAD 10:12 | PROVIDERS: ATTENDING PHYSICIAN Internal Medicine Gastroenterology; FAMILY PHYSICIAN Family Medicine | DX: R12 Heartburn (principal); K44.9 Diaphragmatic hernia without obstruction or gangrene | CPT/HCPCS: 74246 ==

== ENCOUNTER → 2024-05-16 14:32 | Outpatient (REF) | payer MEDICARE, OTHER, SELFPAY | LOC: RCS 14:32 | PROVIDERS: ATTENDING PHYSICIAN Internal Medicine Cardiovascular Disease; FAMILY PHYSICIAN Family Medicine | DX: R07.9 Chest pain, unspecified (principal) | CPT/HCPCS: 93306 ==

== ENCOUNTER 2024-09-08 15:34 | Inpatient (IN) | payer MEDICARE, OTHER, SELFPAY ==
[2024-09-08] VITALS (11 sets, daily range): BP systolic 102–163; BP diastolic 62–131; BMI 33.1
--- NOTE | 2024-09-08 13:13 | ED.GENMED ---
History of Present Illness
General
Chief Complaint: Chest Pain
Time Seen by Provider: 09/08/24 12:58
History of Present Illness
History of Present Illness:
Patient is a 71-year-old woman with history of A-fib on metoprolol and Eliquis presenting to the emergency department heart palpitations and chest pain. Patient states that she woke up at 1 AM with a slight cough. Her has been sick so she
thought she was about her getting the same virus he had. Shortly after around 3 AM she developed some heartburn and some pressure in her chest and went down her arm that has since resolved. She states around 6 AM she developed palpitations checked
her watch and she was found to be in A-fib. She denies any fevers chills. No shortness of breath. No lightheadedness dizziness. No leg swelling hemoptysis. Has not missed any doses of her medications. She overall feels well.
She does state last time she went into A-fib she was in [place] and they tried doing a vagal maneuver which was unsuccessful. They gave her metoprolol and an additional medication that did not resolve it. She spontaneously then cardioverted. The
time before that she states that medics placed an IV in her and she converted to normal sinus rhythm.
Past History
Past History
ED Past Medical History: GERD, Hypercholesterolemia and Seizures
ED Past Surgical History: None
Social History
Tobacco: Non-smoker
Alcohol: None
Phy Exam
Physical Exam
Physical Exam:
GENERAL: in no acute distress
HEENT: normocephalic, extraocular movements intact, moist oral mucosa
NECK: normal inspection
RESPIRATORY: no respiratory distress, clear to auscultation bilaterally
CARDIOVASCULAR: Irregularly irregular, heart rate in the 180s to 200s
ABDOMEN/: soft, non-distended, non-tender to palpation, no rebound or guarding
EXTREMITIES: non-tender, no edema/swelling
NEUROLOGIC: awake and alert, moves all extremities
SKIN: warm
Scores
Heart Score for Chest Pain Patients
STEMI patient?: Not applicable
Course
Orders/Labs/Results
Orders:
Orders
09/08/24 12:49
Electrocardiogram (*1) Urgent
Reason for Study: Chest Pain
EKG- Treatment ONCE
09/08/24 13:12
0.9% Sodium Chloride 1000 ml [Nss] 1,000 ml IV BOLUS
Metoprolol [Lopressor] 15 mg .ROUTE .STK-MED ONE
Metoprolol [Lopressor] 5 mg IV NOW STA
CR Chest - 2 Views Urgent
Comment:
Reason For Exam: cough
09/08/24 13:15
Basic Metabolic Panel Urgent
COVID-19 Antigen Urgent
Source: Nasal Swab
Complete Blood Count/With Diff Urgent
Magnesium Urgent
TSH Reflex To Free T4 Urgent
Troponin I Urgent
Influenza A+B Rapid Molecular Urgent
SUNITHA Source: Nasal Swab
Specimen Description:
09/08/24 13:20
Metoprolol [Lopressor] 5 mg IV NOW STA
Metoprolol [Lopressor] 5 mg IV NOW STA
09/08/24 14:45
Diltiazem 125 mg/125 ml Nss [Cardizem] 125 mg in 125 ml IV NOW
Initial dose in mg/hr, then titrate:: 5
Titrate to keep:: Heart rate 80-100 bpm
Titrate by mg/hr:: 5 mg/hr
Frequency of titrations (minutes):: 15
Maximum dose in mg/hr:: 15
Abnormal Lab Results
09/08/24
13:15
WBC 12.4 H 10^3/uL
(4.8-10.8)
MCH 31.1 H pg
(27.0-31.0)
MPV 11.0 H fL
(7.4-10.4)
Absolute Neuts (auto) 9.6 H 10^3/uL
(1.4-6.5)
Neutrophils % 77.1 H %
(42.2-75.2)
Lymphocytes % 18.8 L %
(20.5-51.1)
Carbon Dioxide 18 L mmol/L
(22-30)
BUN 30 H mg/dl
(7-17)
Glucose 242 H mg/dl
(70-99)
09/08/24 13:15
09/08/24 13:15
Vital Signs
Initial and Last Documented VS:
Initial Vital Signs
Temp Pulse Resp BP Pulse Ox
97.4 F 102 16 163/94 96
09/08/24 12:50 09/08/24 12:50 09/08/24 12:50 09/08/24 12:50 09/08/24 12:50
Last Documented Vital Signs
Temp Pulse Resp BP Pulse Ox
97.4 F 154 19 118/82 96
09/08/24 12:50 09/08/24 14:30 09/08/24 14:30 09/08/24 14:00 09/08/24 14:30
MDM/Problems Addressed
Differential Diagnosis Includes:
Patient is a 74 woman history of A-fib presenting to the emergency department with palpitations and chest pain that has since resolved. Vitals are notable for irregularly irregular heart rate in the 190s. Per my interpretation of patient's EKG she
is in atrial fibrillation with RVR. Could be secondary to the viral illness or pneumonia. She does not appear to be septic or ill-appearing. She is compliant with her Eliquis so less likely to be PE causing the A-fib. She did have some chest
pressure and heartburn has resolved. Will check troponin. Patient is >6 hours since onset of chest pain so will obtain single troponin. Will check blood work chest x-ray and respiratory swab. We did try the revert maneuver which was unsuccessful
though she did have a sinus pause. After shared decision making patient would like to hold off on electrical cardioversion. She does state that she was on diltiazem before but they switched her to metoprolol. She is on 25 mg. She has been taking
it daily. Will give her Lopressor via IV as well as some IV fluids to see if that will cardiovert her.
*Critical Care Note
Total Time (30-74mins, 75-104mins- exclusive of procedures): Not Applicable
Update Note
Update Note:
On reevaluation patient resting comfortably. We did try Lopressor x 2 which did bring her heart rate down to the 150s. However her blood pressure did decrease to 108. Shortly after patient heart rate increased again to the 160s. Additional
Lopressor given. Her blood pressure improved to the 1 teens. However her heart rate is in the 140s to the 150s. She is having some sinus pauses but ultimately back into A-fib. Blood work does show mild leukocytosis. Respiratory swabs negative.
Chest x-ray per my interpretation with no obvious opacity. Patient is not septic appearing and has normal blood work so we will proceed with diltiazem with patient states that she had to receive last time. Discussed with hospitalist who excepted
patient to their service.
ED Attending Note
-
Portions of this chart may have been created with voice recognition software.� Occasional wrong word or��sound alike� substitutions may have occurred due to the inherent limitations of voice recognition software.
Discharge Plan
Departure
Patient Disposition: Admit
Date of Disposition: 09/08/24
Time of Disposition: 14:54
Presentation/result/management discussed w/ accepting MD/DO: Hospitalist
Discharge Problem:
Atrial fibrillation with RVR
Prescriptions:
No Action
multivitamin Tablet
1 tab PO DAILY
omeprazole 40 mg Capsule,Delayed Release(Dr/Ec)
40 mg PO DAILY
alendronate [Fosamax] 70 mg Tablet
70 mg PO QWEEK
Rx Instructions:
Tuesday
famotidine 20 mg Tablet,Chewable
20 mg PO PRN PRN (Reason: Heartburn)
diltiazem HCl 120 mg Capsule,Extended Release 24hr
120 mg PO DAILY Qty: 30 0RF
Eliquis 5 mg Tablet
5 mg PO BID Qty: 60 0RF
Referrals:
Yvette Yeh PA [Family Provider] -
Interventions
Interventions:
*Risk Screen - Suicide Last Done: 09/08/24 12:50
*Neglect/Abuse Screening Last Done: 09/08/24 12:50
ED- Cardiac Assessment Last Done: 09/08/24 13:09
Discharge Date and Time
Print Language: BULGARIAN
[2024-09-08] MEDS: NSS 1000 IV (13:14)
[2024-09-08] MEDS: LOPRESSOR 5 MG IV ×3 (13:16→13:37)
[2024-09-08 13:29] LABS: % Basophils 0.2 % (0-2); % Immature Granulocytes 0.3 % (0-0.5); % Lymphocytes 18.8 % (20.5-51.1); % Monocytes 3.6 % (1.7-9.3); % Neutrophils 77.1 % (42.2-75.2); Absolute Lymphocytes 2.3 10^3/uL (1.2-3.4); Absolute Monocytes 0.5 10^3/uL (0.1-0.6); Absolute Neutrophils 9.6 10^3/uL (1.4-6.5); Hematocrit 43.6 % (37.0-47.0); Mean Corp Hgb Conc. 34.4 g/dL (33.0-37.0); Mean Corpuscular Hgb 31.1 pg (27.0-31.0); Mean Corpuscular Volume 90.3 fL (81.0-99.0); Nucleated Red Blood Cells % 0 %; Platelet Count 276 10^3/uL (130-400); Red Blood Cell Count 4.83 10^6/uL (4.20-5.40); Red Cell Dist. Width 12.8 % (11.5-14.5); White Blood Cell Count 12.4 10^3/uL (4.8-10.8)
[2024-09-08 13:48] LABS: COVID-19 Antigen Negative (Negative)
[2024-09-08 13:51] LABS: Troponin I < 0.012 ng/ml
[2024-09-08 13:53] LABS: Blood Urea Nitrogen 30 mg/dl (7-17); Calcium 9.6 mg/dl (8.4-10.2); Carbon Dioxide 18 mmol/L (22-30); Chloride 106 mmol/L (98-107); Glucose 242 mg/dl (70-99); Magnesium 1.9 mg/dl (1.6-2.3); Potassium 4.5 mmol/L (3.5-5.1); Sodium 138 mmol/L (135-145); eGFR > 60.00
[2024-09-08 14:16] LABS: TSH Reflex To Free T4 1.38 uIU/ml (0.47-4.68)
--- NOTE | 2024-09-08 14:59 | HPS.HSE ---
Addendum entered and electronically signed by Isabel Wills MD 09/08/24 15:44:
I saw and examined the patient.
The [employer] or PA's note was reviewed and I agree with the note.
Patient is a 74-year-old female who was diagnosed with what sounds like paroxysmal atrial fibrillation in November 2023. She has had 5 episodes since that time and is scheduled for ablation this coming November 2024. She presented with cough, left arm
pressure, indigestion and had a cardia monitor at home which was reading atrial fibrillation with rapid ventricular response. Patient came to the hospital. Here she is found to be in rapid atrial fibrillation and rapid ventricular response.
Patient is being admitted.
GENERAL: well developed, well nourished, female in no apparent distress
HEENT: NC/AT--no O2 requirements
HEART: irreg irreg, tachycardic
LUNGS : clear to auscultation bilaterally
ABDOM: soft, nontender, nondistended, + bowel sounds
EXT: no cyanosis, clubbing, or edema
NEUROLOGIC: grossly intact
Paroxysmal A-fib with RVR--no improvement with lopressor x 3--now on cardizem drip--scheduled for ablation November 2024--consult cards--cont Eliquis, cardizem drip--serial troponin (given left arm pressure)--first troponin negative
metabolic acidosis--due to diarrhea which is now resolved--trend
Cough/heartburn likely from GERD--trend troponin--doubt infection--Covid/FLU/CXR neg--cont PPI
Essential HTN- HCTZ continue with hold parameters
Obesity due to excess calories - Affects all aspects of care - Encourage healthy diet and increased exercise with goal of weight loss.
DVT Proph--Eliquis
Code Status--full code
Original Note:
Family Physician
-
Family Physician: Yvette Yeh
Chief Complaint
-
cough
foggy
History of Present Illness
71-year-old woman with history of A-fib on metoprolol and Eliquis, GERD, gout, spinal stenosis presenting to the emergency department with A-fib . patient states that she woke up at 1 AM with a slight cough and heartburn. her has been sick
so she thought she was about her getting the same virus he had. Patient took Pepcid and Mucinex. This morning she woke up with fogginess and left arm tightness. Patient checked her vitals in the watch and noted to be in A-fib with RVR. Patient
denied any chest pain or short of breath. Patient denied palpitation. She is complaining of headache. Denied dizzy or syncope. Patient denied any fever, chills, congestion. Patient denied abdominal pain, nausea, vomiting. She had diarrhea 4
times. Patient denied dysuria or hematuria.
Upon arrival patient was noted in A-fib with RVR. Patient received 3 doses of metoprolol with no relief. Patient was started on Cardizem drip. Admitting for further management
Medical History
Past Medical History
Past Medical History: Reports Other
Additional Past Medical History:
Hyperlipidemia
GERD
Gout
Spinal stenosis
A-fib
Concussion
-Seizure
Past Surgical History: Reports Other
Additional Past Surgical History:
Right foot point fusion
Oral surgery
Social History
Tobacco: Non-smoker
Alcohol: None
Drug: None
Personal:
Living: With Family
Family History
Family History: Not pertinent
Allergies / Home Medications
Allergies reflects when Allergies were last updated in [facility].
Home Medications with original date entered in [facility]
Allergy/Medication List:
Allergies
Allergy/AdvReac Type Severity Reaction Status Date / Time
Rhkoeef-AOS-PgD Reductase Allergy Unknown Verified 09/08/24 12:55
Inhibitor
Home Medications
apixaban 5 mg tablet (Eliquis) 5 mg PO BID #60 tabs 11/30/23
omeprazole 40 mg capsule,delayed release 40 mg PO DAILY Gastrointestinal Issue 11/30/23
cholecalciferol (vitamin D3) 50 mcg (2,000 unit) tablet (Vitamin D3) 50 mcg PO DAILY 09/08/24
cyanocobalamin (vitamin B-12) 1,000 mcg tablet 1,000 mcg PO DAILY 09/08/24
hydrochlorothiazide 25 mg tablet 12.5 mg PO DAILY 09/08/24
metoprolol succinate 25 mg tablet,extended release 24 hr 25 mg PO HS 09/08/24
Review of Systems
-
Constitutional: Reports No Symptoms
EENT: Reports No Symptoms
Respiratory: Reports Cough
Cardiac: Reports No Symptoms
Abdomen/GI: Reports Diarrhea
: Reports No Symptoms
Musculoskeletal: Reports No Symptoms
Skin: Reports No Symptoms
Neurological: Reports Other (Foggy)
Endocrine: Reports No Symptoms
Hematologic/Lymphatic: Reports No Symptoms
Psych: Reports No Symptoms
Physical Exam
Vital Signs
Vital Signs
Temp Pulse Resp BP Pulse Ox
97.4 F 154 19 118/82 96
09/08/24 12:50 09/08/24 14:30 09/08/24 14:30 09/08/24 14:00 09/08/24 14:30
Physical Exam
General: Well Developed, Well Nourished and No Apparent Distress
HEENT: NormoCephalic, Moist mucous membranes and Atraumatic
Respiratory: Clear
Cardiac: Irregular Rhythm and Tachycardia; No Murmur or Rub
GI: Soft, Non Tender, Non Distended and Normal Bowel Sounds; No Organomegaly
Rectal: Deferred by Provider
Musculoskeletal: No Clubbing, No Cyanosis and No Edema
Skin: No Rash
Neuro: AO x 3 and Nonfocal/grossly intact
Psych: Calm
Laboratory Results
-
09/08/24 13:15
09/08/24 13:15
Laboratory Results
Troponin I < 0.012 ng/ml 09/08/24 13:15
Data Reviewed
-
Diagnostic Radiology: Report Reviewed by me
Lab Data: Labs Reviewed by me
Impression/Plan
-
# A-fib with RVR
- Cardizem continued
- Cardiology consulted
- EKG with A-fib with RVR, incomplete right bundle branch block, nonspecific ST and T wave abnormality
- Trop negative
-Eliquis continued
-Metoprolol continued
- Cardiology consulted
# Cough/heartburn likely from GERD
- COVID-negative
- Chest x-ray negative
- Flu and B-
-patient not coughing anymore
- PPI continued
#left arm tightness
-trop negative
-trend trop and EKG
-cards consulted.
# Leukocytosis likely stress reaction
- WBC 12.4, patient is afebrile
# Diarrhea likely viral resolved
- Continue to monitor
- consider Stool for culture, norovirus
#HTN
- HCTZ continue with hold parameters
#Obesity due to excess calories
- Affects all aspects of care.
- Encourage healthy diet and increased exercise with goal of weight loss.
#DVT Prophylaxis: On Eliquis
#Code Status: Full
[2024-09-08] MEDS: CARDIZEM 125 IV (15:05)
--- NOTE | 2024-09-08 18:38 | PTCARENOTE ---
Patient admitted to IVU on Cardizem 15mg/hr. walked into room. A-fib HR 150's with ambulation, in the 80's at rest. Denies shortness of breath. Trace ankle edema. VSS, plan of care reviewed, call aviles in reach
[2024-09-08] MEDS: ELIQUIS 5 MG PO (20:07)
[2024-09-08 20:17] LABS: Troponin I < 0.012 ng/ml
--- NOTE | 2024-09-08 20:45 | PTCARENOTE ---
Received pt @ change of shift. AAOx3. VSS. Cardizem gtt running @ 10 mL/hr through right forearm. Denies any chest pain/SOB. Discussed plan of care for evening. Pt verbalized understanding. Call aviles within reach.
[2024-09-08] MEDS: TOPROL XL 25 MG PO (22:17)
[2024-09-08] MEDS: PEPCID 40 MG PO (22:28)
[2024-09-09] VITALS (7 sets, daily range): BP systolic 105–145; BP diastolic 64–78
[2024-09-09] MEDS: CARDIZEM 125 IV (00:57)
[2024-09-09 01:42] LABS: Troponin I < 0.012 ng/ml
[2024-09-09 07:56] LABS: Hematocrit 40.5 % (37.0-47.0); Hemoglobin 13.7 g/dL (12.0-16.0); Mean Corp Hgb Conc. 33.8 g/dL (33.0-37.0); Mean Corpuscular Hgb 31.1 pg (27.0-31.0); Mean Platelet Volume 11.1 fL (7.4-10.4); Platelet Count 237 10^3/uL (130-400); Red Cell Dist. Width 12.9 % (11.5-14.5); White Blood Cell Count 9.8 10^3/uL (4.8-10.8)
[2024-09-09] MEDS: VITAMIN B-12 1000 MCG PO (08:05)
[2024-09-09] MEDS: PROTONIX 40 MG PO (08:05)
[2024-09-09] MEDS: ELIQUIS 5 MG PO ×2 (08:05→19:29)
[2024-09-09] MEDS: ORETIC 12.5 MG PO (08:05)
[2024-09-09] MEDS: VITAMIN D3 (cholecalciferol) 50 MCG PO (08:05)
[2024-09-09 08:43] LABS: Troponin I < 0.012 ng/ml
--- NOTE | 2024-09-09 09:53 | CON.CAR ---
Consultation
Consultation Request
Date/Time Consultation Requested: September 09, 2024
Date/Time Consultation Performed: September 09, 2024
Requesting Provider: Hospitalist
Performing Provider: Dr Jose Roberto Montano
Reason for Consultation: Symptomatic atrial fibrillation
Medical History
-
Chief Complaint: Left arm pressure and heart racing sensations.
History of Present Illness:
Primary care provider is Dr. Jose Roberto De La Cruz
Primary associate professor of english: Dr. Raquel Brown
She presented to the emergency department on September 08, 2024 with acute onset of left arm discomfort and heart racing sensations. On presentation to the emergency department she was found to be in atrial fibrillation with rapid ventricular rate. Of
note she does have a history of paroxysmal atrial fibrillation and is scheduled for PVI in November 2024.
I have reviewed the ECG on presentation which finds atrial fibrillation with a rapid ventricular rate at 183 bpm, right bundle branch block and nonspecific ST and T wave abnormalities
Serial troponin values this admission all < 0.012
Normal renal function and stable CBC with H&H of 14 and 40
My review of chest x-ray finds no radiographic evidence of obvious cardiopulmonary disease
Past medical history:
Paroxysmal atrial fibrillation
[id number]: 3 (hypertension, age, gender). On Eliquis 5 mg twice daily for stroke risk reduction without complication
On metoprolol succinate 25 mg daily for rate control
Plan for PVI in November [address] Deng
Essential hypertension
Dyslipidemia
Suspected sleep apnea
Gastroesophageal reflux disease
Right bundle branch block
Mitral regurgitation (mild to moderate)
Spinal stenosis
Gout
PET myocardial imaging study May 15, 2024 finds normal perfusion, no ischemia or scar. Normal systolic function with estimated ejection fraction of 81%.
Echocardiogram May 16, 2024 finds normal LV function ejection fraction of 60 to 65% with mild to moderate mitral regurgitation.
Social History
Tobacco: Non-Smoker
Alcohol: None
Drug: None
Personal:
Living: With Family
Family History
Family History: Reviewed & Not Pertinent
Allergies / Home Medications
Allergy/AdvReac Type Severity Reaction Status Date / Time
Viszvuv-ONN-HuO Reductase Allergy Unknown Verified 09/08/24 12:55
Inhibitor
�Medication �Instructions �Recorded �Confirmed �Type
apixaban 5 mg tablet (Eliquis) 5 mg PO BID #60 tabs 11/30/23 09/08/24 Rx
omeprazole 40 mg capsule,delayed 40 mg PO DAILY Gastrointestinal 11/30/23 09/08/24 History
release Issue
cholecalciferol (vitamin D3) 50 50 mcg PO DAILY 09/08/24 09/08/24 History
mcg (2,000 unit) tablet (Vitamin
D3)
cyanocobalamin (vitamin B-12) 1,000 mcg PO DAILY 09/08/24 09/08/24 History
1,000 mcg tablet
hydrochlorothiazide 25 mg tablet 12.5 mg PO DAILY 09/08/24 09/08/24 History
metoprolol succinate 25 mg 25 mg PO HS 09/08/24 09/08/24 History
tablet,extended release 24 hr
Physical Exam
Vital Signs
Temp Pulse Resp BP Pulse Ox
98 F 101 20 115/64 96
09/09/24 07:18 09/08/24 23:00 09/09/24 07:18 09/08/24 22:17 09/09/24 07:18
Lab Results
09/09/24 07:42
09/08/24 13:15
Troponin I < 0.012 ng/ml 09/09/24 07:42
Physical Exam
General: Well Developed, Well Nourished, No Apparent Distress and Comfortable
HEENT: Normocephalic, Anicteric and Moist Mucous Membranes
Respiratory: Clear and Non Labored Respirations
Cardiac: S1/S2 (No S3 no S4), Irregular Rhythm and Murmur (Grade 2/6 apical holosystolic murmur, no rubs, normal PMI)
Breast: Deferred by me
GI: Soft, Non Tender and Non Distended
Rectal: Deferred by Provider
Musculoskeletal: No Clubbing, No Cyanosis and No Edema
Skin: Warm and Dry
Neuro: Awake, Alert, Oriented and AO x 3
Psych: Calm
Impression / Plan
-
Assessment:
Paroxysmal atrial fibrillation
Presenting now with rapid ventricular rates, symptomatic
[id number]: 3 (hypertension, age, gender). On Eliquis 5 mg twice daily for stroke risk reduction without complication
As an outpatient she has been on metoprolol succinate 25 mg daily for rate control
Plan has been for PVI 11/09/[address] Deng
Essential hypertension
Dyslipidemia
Suspected sleep apnea
Gastroesophageal reflux disease
Right bundle branch block
Mitral regurgitation (mild to moderate)
Spinal stenosis
Gout
PET myocardial imaging study May 15, 2024 finds normal perfusion, no ischemia or scar. Normal systolic function with estimated ejection fraction of 81%.
Echocardiogram May 16, 2024 finds normal LV function ejection fraction of 60 to 65% with mild to moderate mitral regurgitation.
Recommendation:
Maintain Eliquis 5 mg twice daily for atrial fibrillation related thromboembolic risk reduction
Maintain intravenous Cardizem for rate control
Will increase Toprol-XL from 25 mg to 50 mg daily to assist in rate control
Plan for cardioversion tomorrow
Consideration to advance date of her PVI with Dr. eDng which is currently scheduled for November 09, 2024. In the interim if she continues to have recurrences, consider antiarrhythmic drug therapy prior to PVI
Discussed with patient and with primary service, Dr. Wills. All questions answered.
Total time spent today was 76 minutes in preparing to see the patient, seeing the patient and coordination of care. This included review of recent laboratory evaluations, cardiact testing, imaging studies, primary care rtecords, specialty
consultations, hospital records, as well as personally interviewing and examining the patient, which included discussion of their tests, review/ordering medications, and communicating with other healthcare professionals and also treatment planning
as well as counseling.
Data Reviewed
-
EKG: Tracing Personally Visualized and interpreted
Radiology: Image Personally Visualized and interpreted
Medical Tests (Nuc Med, Echo etc): Report Reviewed by me
Labs: Labs Reviewed by me and Discussed with Patient
Old Records: Reviewed
--- NOTE | 2024-09-09 11:03 | W.PN.HOSP.TC ---
Today's Communication/Plan
-
cont cardizem drip
apprec cards
possible KEERTHI with CV Tuesday
Assessment / Plan
Assessment / Plan
pt is a 74 year old female
Paroxysmal A-fib with RVR--cont cardizem drip--scheduled for ablation October 2024--apprec cards--cont Eliquis, cardizem drip- troponin neg x 3 --if no spontaneous conversion to sinus, likely KEERTHI with CV tomorrow
metabolic acidosis--due to diarrhea which is now resolved--trend bicab, await labs--may need IVF with bicarb
Cough/heartburn likely from GERD--troponin neg--doubt infection--Covid/FLU/CXR neg--cont PPI
Essential HTN- HCTZ continue with hold parameters
Obesity due to excess calories - Affects all aspects of care - Encourage healthy diet and increased exercise with goal of weight loss.
DVT Proph--Eliquis
Code Status--full code
Anticipated Discharge: 24 - 48 hours
Subjective/Interval History
-
Date of Service: September 09, 2024
pt without c/o--still in afib
Objective Data
-
Labs:
Laboratory Results
09/09/24 09/09/24
07:42 10:53
WBC 9.8
Hgb 13.7
Hct 40.5
Plt Count 237
Sodium Pending
Potassium Pending
Chloride Pending
Carbon Dioxide Pending
BUN Pending
Creatinine Pending
Glucose Pending
Calcium Pending
Vital Signs:
max temp for 24 hours
09/09/24
04:30
Temp 98.3 F
Vital Signs
Temp Pulse Resp BP Pulse Ox
98 F 101 20 115/64 96
09/09/24 07:18 09/08/24 23:00 09/09/24 07:18 09/08/24 22:17 09/09/24 07:18
Review of Systems
-
All other systems: Reviewed and negative
Physical Exam
-
General: Well Developed, Well Nourished and No Apparent Distress
HEENT: Normocephalic and Atraumatic; Negative Oxygen
Respiratory: Clear to Auscultation; Negative Wheezes or Rhonchi
Cardiac: Irregular Rhythm
GI: Soft, Nontender, Nondistended and Normal Bowel Sounds
Musculoskeletal: No Clubbing, No Cyanosis and No Edema
Skin: Warm
Neuro: Awake
Psych: Calm
--- NOTE | 2024-09-09 13:07 | PTCARENOTE ---
received patient this am, monitor shows Afib, with IV Cardizem drip @ 10cc/hr via right hand. came in to see patient, will be NPO after midnight for KEERTHI/CV. at 1218 patient converted to NSR, confirmed with EKG and Dr. Montano aware and IV
Cardizem D/C'd.
[2024-09-09 15:04] LABS: Blood Urea Nitrogen 26 mg/dl (7-17); Calcium 9.6 mg/dl (8.4-10.2); Carbon Dioxide 21 mmol/L (22-30); Chloride 106 mmol/L (98-107); Estimated Creatinine Clearance 60 ml/min; Glucose 191 mg/dl (70-99); Potassium 4.3 mmol/L (3.5-5.1); Sodium 136 mmol/L (135-145); eGFR > 60.00
--- NOTE | 2024-09-09 20:43 | PTCARENOTE ---
Received pt @ change of shift. AAOx3. VSS. NSR. Denies chest pain/SOB, palpitations. Discussed being NPO @ midnight just in case converts back to A-fib. Pt verbalized understanding. Call aviles within reach.
[2024-09-09] MEDS: TOPROL XL 50 MG PO (21:38)
[2024-09-10 03:40] VITALS: BP 124/77
[2024-09-10 05:05] LABS: Hematocrit 40.7 % (37.0-47.0); Hemoglobin 13.9 g/dL (12.0-16.0); Mean Corp Hgb Conc. 34.2 g/dL (33.0-37.0); Mean Corpuscular Hgb 30.9 pg (27.0-31.0); Mean Corpuscular Volume 90.4 fL (81.0-99.0); Mean Platelet Volume 11.4 fL (7.4-10.4); Platelet Count 249 10^3/uL (130-400); Red Cell Dist. Width 12.5 % (11.5-14.5); White Blood Cell Count 8.5 10^3/uL (4.8-10.8)
[2024-09-10 08:13] VITALS: BP 132/77
[2024-09-10] MEDS: ELIQUIS 5 MG PO (08:42)
[2024-09-10] MEDS: PROTONIX 40 MG PO (08:42)
[2024-09-10] MEDS: ORETIC 12.5 MG PO (08:42)
[2024-09-10] MEDS: VITAMIN D3 (cholecalciferol) 50 MCG PO (08:42)
[2024-09-10] MEDS: VITAMIN B-12 1000 MCG PO (08:42)
--- NOTE | 2024-09-10 09:45 | PTCARENOTE ---
received patient this am, chief complaint is that she experienced 'hot flashes' last night. monitor remains in NSR, VSS.
--- NOTE | 2024-09-10 09:57 | W.PN.CARDCBS ---
Today's Communication / Plan
-
Toprol has been increased to 50 mg daily
Avoid diltiazem given possible reaction with flushing and sweating per patient
Continue oral anticoagulation
Currently in sinus rhythm. We will arrange further follow-up and move up pulmonary vein isolation.
Impression / Plan
-
Assessment:
Paroxysmal atrial fibrillation
Presenting now with rapid ventricular rates, symptomatic
[id number]: 3 (hypertension, age, gender). On Eliquis 5 mg twice daily for stroke risk reduction without complication
As an outpatient she has been on metoprolol succinate 25 mg daily for rate control
Plan has been for PVI 11/09/[address] Deng
Essential hypertension
Dyslipidemia
Suspected sleep apnea
Gastroesophageal reflux disease
Right bundle branch block
Mitral regurgitation (mild to moderate)
Spinal stenosis
Gout
PET myocardial imaging study May 15, 2024 finds normal perfusion, no ischemia or scar. Normal systolic function with estimated ejection fraction of 81%.
Echocardiogram May 16, 2024 finds normal LV function ejection fraction of 60 to 65% with mild to moderate mitral regurgitation.
Recommendation:
Stable overnight. Now in sinus rhythm. Telemetry independently reviewed by me. EKG independently reviewed by me and stable now in sinus rhythm.
Improved labs reviewed by me with improved bicarb
Maintain Eliquis 5 mg twice daily for atrial fibrillation related thromboembolic risk reduction
Discontinue Cardizem given she feels like she may have had a reaction to this medication now and in the past with flushing and sweats.
Agree with Toprol-XL from 25 mg to 50 mg daily to assist in rate control
Volume status appears stable.
Given significant recurrence of atrial fibrillation leading to hospitalization we will discuss with electrophysiology coordinators and physician moving up already schedule pulmonary vein isolation. Pulmonary vein isolation is scheduled with
Ish for November 09, 2024. She certainly will call the office if symptomatic recurrence.
Discussed with patient. I reached out to Dr Richard with plan as noted above through secure texting.
Discussed at length and plan in place.
I discussed at great length. I have spent 50 minutes [id number] and [id number] time and discussion and review of records.
Progress Note - Pyrometer Mechanic
Subjective
Date of Service: September 10, 2024
She denies chest pain, palpitations, dizziness and syncope. She is ambulating without problem.
Objective
Labs:
09/10/24 03:45
09/09/24 14:43
Labs
Hgb 13.9 g/dL (12.0-16.0) 09/10/24 03:45
Hct 40.7 % (37.0-47.0) 09/10/24 03:45
Plt Count 249 10^3/uL (130-400) 09/10/24 03:45
Sodium 136 mmol/L (135-145) 09/09/24 14:43
Potassium 4.3 mmol/L (3.5-5.1) 09/09/24 14:43
BUN 26 mg/dl (7-17) H 09/09/24 14:43
Creatinine 0.9 mg/dL (0.6-1.0) 09/09/24 14:43
Glucose 191 mg/dl (70-99) H 09/09/24 14:43
Troponins
09/08/24 09/08/24 09/09/24
13:15 19:47 01:11
Troponin I < 0.012 < 0.012 < 0.012
09/09/24
07:42
Troponin I < 0.012
Vital Signs and I&O:
Vital Signs
Temp Pulse Resp BP Pulse Ox
97.5 F 60 16 132/77 98
09/10/24 08:28 09/10/24 09:30 09/10/24 08:28 09/10/24 08:13 09/10/24 08:30
Vital Signs
Temp Pulse Resp BP Pulse Ox
97.5 F 60 16 132/77 98
09/10/24 08:28 09/10/24 09:30 09/10/24 08:28 09/10/24 08:13 09/10/24 08:30
Intake & Output
09/08/24 09/09/24 09/10/24 09/11/24
06:59 06:59 06:59 06:59
Intake Total 510 / 510
Balance 510 / 510
Physical Exam
Physical Exam
General: Well developed, well nourished in NAD.
Heart: Non displaced PMI, RRR, no murmurs, No S3, S4, no rubs.
Lungs: Clear to auscultation bilaterally, no wheeze, rhonchi, rubs bilaterally,
Extremities: No clubbing, cyanosis or edema bilaterally.
Neuro: Grossly nonfocal, awake, alert
[2024-09-10 11:04] VITALS: BP 150/76
--- NOTE | 2024-09-10 11:43 | CM ---
Reviewed chart. Met with Mrs. Hartman to review discharge plans. She states prior to admission she resides with her spouse in a three story home with four steps to enter. She states she has a full flight of steps to get to bedroom/full bathroom.
She states she has a powder room on the first floor. She states prior to admission she was independent with ambulation and adls. She states she does not have any DME in the home. She states she has a prescription plan and uses [facility].
Medical work-up in progress. The discharge plan is to return home with her spouse when medically stable.
--- NOTE | 2024-09-10 12:38 | W.PN.HOSP.TC ---
Addendum entered and electronically signed by Mya Richard MD 09/10/24 15:25:
total DC time 37 min
Addendum entered and electronically signed by Mya Richard MD 09/10/24 13:25:
I saw and evaluated the patient. I reviewed the resident�s note and agree with findings and plan as documented in the resident�s note.
A/P:
# Paroxysmal A-fib with RVR
s/p cardizem drip with spontaneous conversion to normal sinus rhythm
apprec cards, cont Eliquis, home Toprol increased from 25 to 50 mg
# metabolic acidosis due to diarrhea which now resolved
# Cough/heartburn likely from GERD
Covid/FLU/CXR neg
cont PPI
# Essential HTN
HCTZ continue with hold parameters
# Obesity due to excess calories
Affects all aspects of care
Encourage healthy diet and increased exercise with goal of weight loss.
Dispo: DC back home
Original Note:
Today's Communication/Plan
-
Discharge planning to home today
Dispo medications: Toprol-XL increased to 50 mg QD, Eliquis 5 mg twice daily
Follow-up with outpatient cardiology, potential ablation in future.
Assessment / Plan
Assessment / Plan
Impression
Paroxysmal atrial fibrillation with RVR
Metabolic acidosis
Cough/heartburn
Essential hypertension
Obesity due to excess calories
Plan
Paroxysmal A-fib with RVR
KEERTHI/cardioversion has been called off since the patient converted to sinus rhythm
Converted to SR on Cardizem drip, off Cardizem drip now
Toprol-XL increased to 50 mg from 25mg
Continue Eliquis 5 mg twice daily
Appreciate cardiology input
Scheduled for ablation in October 2024, plan to move the procedure per cardiology
Discharge plan to home today
Metabolic acidosis--due to diarrhea which is now resolved
Cough/heartburn likely from GERD
Continue PPI
Essential HTN-
Continue HCTZ
Obesity due to excess calories - Affects all aspects of care - Encourage healthy diet and increased exercise with goal of weight loss.
DVT Proph--Eliquis
Code Status--full code
Anticipated Discharge: Today
Subjective/Interval History
-
Date of Service: September 10, 2024
No overnight events, converted to SR on Cardizem drip.
Objective Data
-
Labs:
Laboratory Results
09/10/24
03:45
WBC 8.5
Hgb 13.9
Hct 40.7
Plt Count 249
Vital Signs:
Vital Signs
Temp Pulse Resp BP Pulse Ox
97.6 F 60 20 132/77 97
09/10/24 11:32 09/10/24 09:30 09/10/24 11:32 09/10/24 08:13 09/10/24 11:32
I&O
09/09/24 09/10/24 09/11/24
06:59 06:59 06:59
Intake Total 510 / 510
Balance 510 / 510
Review of Systems
-
All other systems: Reviewed and negative
Physical Exam
-
General: No Apparent Distress and Comfortable
HEENT: Normocephalic and Atraumatic
Respiratory: Clear to Auscultation
Cardiac: Regular Rhythm and S1/S2
GI: Soft, Nontender and Nondistended
Musculoskeletal: No Edema
Neuro: AO x 3
Psych: Calm
Data Reviewed
-
Diagnostic Radiology: Report Reviewed by me and Discussed with Physician
Labs: Labs Reviewed by me and Discussed with Physician
[2024-09-10 14:18] VITALS: BP 152/88
--- NOTE | 2024-09-10 14:46 | PTCARENOTE ---
D/C instructions given to patient, verbalizes understanding. INT D/C'd, telemetry D/C'd, personal belongings packed and sent home with patient. D/C to home via wc accompanied by vol. services.
--- NOTE | 2024-09-10 15:11 | W.DCSUMMARY ---
Documented by User: Maxime Delatorre MD, Resident 09/10/24 15:24
Discharge Summary
Discharge Data
Date of Admission: 09/08/24
Date of Discharge: 09/10/24
-
Pending Results: No
Hospital Course
Discharging Physician : Dr Maxime Delatorre, Dr Jose Manuel Roque.H
Disposition : Home
Primary care physician : Yvette Yeh
Principal Discharge diagnosis :
Atrial fibrillation with RVR
Chronic Discharge diagnosis :
Paroxysmal atrial fibrillation
GERD
Hospital Course : 74-year-old female recent diagnosis of paroxysmal atrial fibrillation in October 2023 presented home monitor worker reading of atrial fibrillation with RVR, and left arm pressure. She has had 5 episodes since the time of
diagnosis and has been scheduled for ablation this coming November 2024. In the ED she was found to be in rapid A-fib with RVR. She was started on Cardizem drip and converted to normal sinus rhythm spontaneously. Patient did not need
KEERTHI/cardioversion. At discharge home dose Toprol XL was increased from 25 mg to 50 mg with continuation of Eliquis 5 mg twice daily. Diltiazem avoided given possible reaction with flushing and sweating per patient. Cardiology will arrange
further follow-up and likely move up pulmonary vein isolation/ablation.
Important imaging findings :
09/08/24 Chest x-ray- No acute cardiopulmonary abnormality.
Procedure findings : None
Discharge Plan
-
Patient Disposition: Home (Routine Discharge)
Discharge Diagnosis/Procedures: Atrial fibrillation with rapid ventricular rate, with subsequent spontaneous conversion back to normal sinus rhythm
Condition: Good
Diet: Low Sodium
Activity: No restrictions
Driving Restrictions: As prior to admission
Referrals:
Yvette Yeh PA [Family Provider] -
Additional Discharge Medication Instructions: A-fib with RVR
Start taking metoprolol succinate 50 mg 1 tablet daily.
Continue Eliquis 5 mg 1 tablet twice daily
Patient has been scheduled for pulmonary vein isolation/ablation in October 2024, further f/u with cardiology if procedures needs to be moved up.
Prescriptions:
New
metoprolol succinate 50 mg Tablet Extended Release 24 Hr
50 mg PO HS Qty: 30 0RF
Continued
omeprazole 40 mg Capsule,Delayed Release(Dr/Ec)
40 mg PO DAILY
cyanocobalamin (vitamin B-12) 1,000 mcg Tablet
1,000 mcg PO DAILY Qty: 0 0RF
hydrochlorothiazide 25 mg Tablet
12.5 mg PO DAILY Qty: 0 0RF
Eliquis 5 mg Tablet
5 mg PO BID Qty: 60 0RF
cholecalciferol (vitamin D3) [Vitamin D3] 50 mcg (2,000 unit) Tablet
50 mcg PO DAILY Qty: 0 0RF
Discontinued
metoprolol succinate 25 mg Tablet Extended Release 24 Hr
25 mg PO HS
Discharge Orders:
Discharge Patient (As Directed); Ordered 09/10/24
Ordered By: Maxime Delatorre
Care Plan Goals
Care Plan Goals:
Problem: Readiness for enhanced knowledge related to diagnosis and treatment plan
Goal: Understand your diagnosis and treatment plan needs, including medications if applicable.
Instructions: Know your diagnosis, underlying causes and treatment plan options, including medications if applicable. Consult with your health care team to learn about your diagnosis and treatment plan, including medications if applicable.
Discharge Date and Time
Discharge Date/Time: 09/10/24 15:07
Print Language: YI

Documented by User: Mya Richard MD 09/10/24 15:25
Discharge Summary
Discharge Data
Date of Admission: 09/08/24
Date of Discharge: 09/10/24
Hospital Course
Discharging Physician : Dr Maxime Delatorre, Dr Jose Manuel Roque.H
Disposition : Home
Primary care physician : Yvette Yeh
Principal Discharge diagnosis :
Atrial fibrillation with RVR
Chronic Discharge diagnosis :
Paroxysmal atrial fibrillation
GERD
Hospital Course : 74-year-old female recent diagnosis of paroxysmal atrial fibrillation in October 2023 presented with home monitor worker reading of atrial fibrillation with RVR and left arm pressure. She has been scheduled for ablation this coming
November 2024. In the ED, she was found to be in rapid A-fib with RVR. She was started on Cardizem drip and converted to normal sinus rhythm spontaneously. Patient did not need KEERTHI/cardioversion due to her spontaneous conversion. Her home dose
Toprol XL was increased from 25 mg to 50 mg at discharge with continuation of Eliquis 5 mg twice daily. Oral diltiazem was avoided given possible reaction with flushing and sweating per patient. Cardiology will arrange further follow-up for
pulmonary vein isolation/ablation.
Important imaging findings :
09/08/24 Chest x-ray- No acute cardiopulmonary abnormality.
Procedure findings : None
Discharge Plan
-
Patient Disposition: Home (Routine Discharge)
Discharge Diagnosis/Procedures: Atrial fibrillation with rapid ventricular rate, with subsequent spontaneous conversion back to normal sinus rhythm
Condition: Good
Diet: Low Sodium
Activity: No restrictions
Driving Restrictions: As prior to admission
Referrals:
Yvette Yeh PA [Family Provider] -
Additional Discharge Medication Instructions: A-fib with RVR
Start taking metoprolol succinate 50 mg 1 tablet daily.
Continue Eliquis 5 mg 1 tablet twice daily
Patient has been scheduled for pulmonary vein isolation/ablation in October 2024, further f/u with cardiology if procedures needs to be moved up.
Prescriptions:
New
metoprolol succinate 50 mg Tablet Extended Release 24 Hr
50 mg PO HS Qty: 30 0RF
Continued
omeprazole 40 mg Capsule,Delayed Release(Dr/Ec)
40 mg PO DAILY
cyanocobalamin (vitamin B-12) 1,000 mcg Tablet
1,000 mcg PO DAILY Qty: 0 0RF
hydrochlorothiazide 25 mg Tablet
12.5 mg PO DAILY Qty: 0 0RF
Eliquis 5 mg Tablet
5 mg PO BID Qty: 60 0RF
cholecalciferol (vitamin D3) [Vitamin D3] 50 mcg (2,000 unit) Tablet
50 mcg PO DAILY Qty: 0 0RF
Discontinued
metoprolol succinate 25 mg Tablet Extended Release 24 Hr
25 mg PO HS
Discharge Orders:
Discharge Patient (As Directed); Ordered 09/10/24
Ordered By: Maxime Delatorre
Care Plan Goals
Care Plan Goals:
Problem: Readiness for enhanced knowledge related to diagnosis and treatment plan
Goal: Understand your diagnosis and treatment plan needs, including medications if applicable.
Instructions: Know your diagnosis, underlying causes and treatment plan options, including medications if applicable. Consult with your health care team to learn about your diagnosis and treatment plan, including medications if applicable.
Discharge Date and Time
Discharge Date/Time: 09/10/24 15:07
Print Language: YI
== END 2024-09-10 15:07 | disposition home or self-care (01) | DRG 309 ==
LOC: IVU 15:34
PROVIDERS: Registered Nurse; Student in an Organized Health Care Education/Training Program; ADMITTING PHYSICIAN Internal Medicine; ATTENDING PHYSICIAN Internal Medicine; CONSULT PHYSICIAN Internal Medicine Cardiovascular Disease; EMERGENCY PHYSICIAN Student in an Organized Health Care Education/Training Program; FAMILY PHYSICIAN Family Medicine
DX: I48.0 Paroxysmal atrial fibrillation (principal); E87.20 Acidosis, unspecified; E78.00 Pure hypercholesterolemia, unspecified; I45.10 Unspecified right bundle-branch block; I34.0 Nonrheumatic mitral (valve) insufficiency; R19.7 Diarrhea, unspecified; K21.9 Gastro-esophageal reflux disease without esophagitis; D72.829 Elevated white blood cell count, unspecified; I10 Essential (primary) hypertension; E66.09 Other obesity due to excess calories; Z53.8 Procedure and treatment not carried out for other reasons; Z68.33 Body mass index [BMI] 33.0-33.9, adult; Z11.52 Encounter for screening for COVID-19; Z79.01 Long term (current) use of anticoagulants
CPT/HCPCS: 71046; 80048; 83735; 84443; 84484; 85025; 85027; 87502; 87811; 93005; 96365; 96366; 96375; 99285

== ENCOUNTER → 2024-10-09 11:51 | Outpatient (REF) | payer MEDICARE, OTHER, SELFPAY | LOC: DHSLP 11:51 | PROVIDERS: ATTENDING PHYSICIAN Internal Medicine Cardiovascular Disease; FAMILY PHYSICIAN Chiropractor | DX: G47.33 Obstructive sleep apnea (adult) (pediatric) (principal) | CPT/HCPCS: 95800 ==

== ENCOUNTER → 2024-10-23 08:35 | Outpatient (REF) | payer MEDICARE, OTHER, SELFPAY ==
[2024-10-23 09:54] LABS: % Basophils 0.7 % (0-2); % Immature Granulocytes 0.2 % (0-0.5); % Lymphocytes 36.9 % (20.5-51.1); % Monocytes 10.7 % (1.7-9.3); % Neutrophils 48.5 % (42.2-75.2); ALT (SGPT) 31 U/L (0-35); AST (SGOT) 24 U/L (14-36); Absolute Eosinophils 0.1 10^3/uL (0-0.7); Absolute Lymphocytes 1.5 10^3/uL (1.2-3.4); Absolute Monocytes 0.4 10^3/uL (0.1-0.6); Absolute Neutrophils 1.9 10^3/uL (1.4-6.5); Albumin 4.2 g/dl (3.5-5.0); Alkaline Phosphatase 64 U/L (38-126); Blood Urea Nitrogen 22 mg/dl (7-17); Calcium 9.3 mg/dl (8.4-10.2); Carbon Dioxide 29 mmol/L (22-30); Chloride 107 mmol/L (98-107); Glucose 100 mg/dl (70-99); Hematocrit 39.7 % (37.0-47.0); Hemoglobin 13.4 g/dL (12.0-16.0); Mean Corp Hgb Conc. 33.8 g/dL (33.0-37.0); Mean Corpuscular Hgb 31.2 pg (27.0-31.0); Mean Corpuscular Volume 92.3 fL (81.0-99.0); Mean Platelet Volume 10.6 fL (7.4-10.4); Nucleated Red Blood Cells % 0 %; Platelet Count 229 10^3/uL (130-400); Potassium 4.4 mmol/L (3.5-5.1); Red Cell Dist. Width 12.5 % (11.5-14.5); Sodium 140 mmol/L (135-145); Total Bilirubin 0.5 mg/dl (0.2-1.3); eGFR > 60.00
[2024-10-23 09:55] LABS: INR 0.94; PT 12.9 Sec (11.4-14.6)
== END ==
LOC: SDSPAT 08:35
PROVIDERS: ATTENDING PHYSICIAN Internal Medicine Cardiovascular Disease; FAMILY PHYSICIAN Family Medicine; OTHER PHYSICIAN Internal Medicine Cardiovascular Disease
DX: I48.0 Paroxysmal atrial fibrillation (principal)
CPT/HCPCS: 36415; 75572; 80053; 83735; 85025; 85610; 86850; 86900; 86901; 93005; Q9967

== ENCOUNTER 2024-11-09 05:54 | Day surgery (SDC) | payer MEDICARE, OTHER, SELFPAY ==
[2024-10-23 09:11] VITALS: BMI 31.6
--- NOTE | 2024-10-23 10:06 | HPS.HSE ---
Family Physician
-
Family Physician: NO INTERVIEW UNKNOWN
Chief Complaint
-
Paroxysmal atrial fibrillation.
History of Present Illness
The patient is a 74 year old female presenting today for paroxysmal atrial fibrillation. The patient reports symptoms such as mild exertional shortness of breath, fatigue, fogginess, and lightheadedness all likely secondary to this
diagnosis. She unfortunately has had multiple emergency room visits due to symptomatic atrial fibrillation with rapid ventricular response. She is on current pharmacological therapy with Metoprolol Succinate. She reports compliance with Eliquis for
oral anticoagulation due to a CHADS-VASc of 3. She notes that her atrial fibrillation symptoms greatly interfere with her activities of daily living and overall impact her quality of life. She is interested in pursuing pulmonary vein isolation for
more definitive arrhythmia management. She denies any current complaints today such as chest pain, shortness of breath at rest, nausea, vomiting, diarrhea, dizziness, cough, sore throat, or fever.
Medical History
Past Medical History
Past Medical History: Reports Other
Additional Past Medical History:
1. Paroxysmal atrial fibrillation, pharmacological therapy with Metoprolol Succinate and oral anticoagulation with Eliquis.
2. Hypertension.
3. Hyperlipidemia.
4. Mild abdominal aortic atherosclerosis.
5. Right bundle branch block.
6. Mild-moderate mitral regurgitation.
7. Newly diagnosed obstructive sleep apnea, awaiting treatment options.
8. GERD.
9. Hiatal hernia.
10. Duodenal diverticulum.
11. Frequent diarrhea, likely medication induced.
12. Migraines.
13. Seizure disorder, last seizure 02/2019.
14. Peripheral neuropathy.
15. Multilevel degenerative disc disease with stenosis.
16. Chronic compression fracture of T12.
17. Osteoarthritis.
18. Gout.
19. Squamous and basal cell carcinoma, status post excision.
20. Osteoporosis.
21. Obesity, BMI 31.6.
22. History of infrequent tobacco abuse.
Past Surgical History: Reports Other
Additional Past Surgical History:
1. Right foot bone fusion.
2. Left maxillary bone graft.
3. Rhizotomy.
4. Dental implantation.
5. Multiple epidural steroid injections.
6. Colonoscopy x2.
7. Multiple endoscopies.
Social History
Tobacco: Former Smoker (She is a former 'social' smoker who quit tobacco remotely. )
Alcohol: Other (She reports social alcohol use. )
Personal:
Living: Other (She lives in a 3 story home with her . )
Family History
Family History: Not pertinent
Allergies / Home Medications
Allergy/Medication List:
Home medications:
1. Eliquis 5 mg p.o. twice a day.
2. Cholecalciferol 50 mcg p.o. daily.
3. Cyanocobalamin 1000 mcg p.o. daily.
4. Hydrochlorothiazide 12.5 mg p.o. daily.
5. Metoprolol Succinate 50 mg p.o. at bedtime.
6. Omeprazole 40 mg p.o. daily.
Allergies: No known drug allergies.
Adverse drug reactions: Statins.
Review of Systems
-
A 12 point ROS was completed and negative except as noted: Yes
Physical Exam
Vital Signs
Blood pressure 146/79. Heart rate 64. Respirations 18. Pulse ox 98% on room air.
Height 5 feet, 5 inches. Weight 86.2 kg. BMI 31.6.
Physical Exam
General: Well Developed, Well Nourished and No Apparent Distress
HEENT: NormoCephalic, Moist mucous membranes, Atraumatic and PERRLA
Respiratory: Clear
Cardiac: Regular Rhythm
GI: Soft, Non Tender, Non Distended and Other (Obese. )
Musculoskeletal: No Edema and Normal Gait & Station
Skin: Warm and Dry
Neuro: AO x 3 and Nonfocal/grossly intact
Laboratory Results
-
DIAGNOSTIC STUDIES as of 10/23/2024: White blood cell count 4.0. Hemoglobin 13.4. Platelet count 229,000. PT 12.9. INR 0.94. Sodium 140. Potassium 4.4. BUN 22. Creatinine 0.9. Glucose 100. Calcium 9.3. Magnesium 2.0. AST 24. ALT 31. Albumin 4.2.
Type and screen A positive.
EKG 10/23/2024: Normal sinus rhythm. Incomplete right bundle branch block. Minimal voltage criteria for LVH, may be normal variant. Nonspecific T wave abnormality.
Chest CT 10/23/2024: Conventional pulmonary venous anatomy. Enlargement of the left atrium with no evidence for left atrial thrombus. Small to moderate hiatal hernia. Linear density in the lateral aspect of the left lower lung, likely linear
scarring.
Echocardiogram 05/16/2024: Normal left ventricular size, wall thickness, and systolic function. No regional wall motion abnormalities are seen. LV ejection fraction is 60-65%. Mild to moderate mitral regurgitation. Compared to the previous echo from
November 2023, there is no significant change.
Myocardial PET 05/15/2024: There is small volume partially calcific coronary artery plaque. There is 5 cm hiatal hernia.
Impression/Plan
-
IMPRESSION/PLAN:
1. Paroxysmal atrial fibrillation: The patient is in need of pulmonary vein isolation with Dr. Tai Deng on 11/09/2024. The benefits and risks of pulmonary vein isolation have been explained to the patient. The patient understands these risks
and wishes to proceed. She will not be required to undergo a pre-procedural transesophageal echocardiogram as she has been compliant with her home oral anticoagulation. She is aware to continue her Eliquis up until the night prior to her procedure.
She will take no medications the morning of her procedure.
[2024-11-09] VITALS (12 sets, daily range): BP systolic 107–144; BP diastolic 54–87; BMI 31.7
--- NOTE | 2024-11-09 07:25 | ITS.CL.ABL ---
Glass Breaker - Ablation
Ablation
Procedure Report:
Primary Clipper Machine: Dr Raquel Brown
Procedure Date: 11/09/2024
Patient History:
Patient is a pleasant 74-year-old female with a past medical history significant for hypertension, hyperlipidemia, right bundle branch block, mitral valve disease, GERD, symptomatic paroxysmal atrial fibrillation.
See H&P for complete details.
Indication:
Symptomatic paroxysmal atrial fibrillation
Arrhythmia Specific History:
Prior Medical Therapies for Rate and Rhythm Control:
X Beta-atilio
[ ] Calcium channel-atilio
[ ] Amiodarone
[ ] Dronederone
[ ] Sotalol
[ ] Flecainide
[ ] Dofetilide
[ ] Options limited by bradycardia
[ ] Options limited by comorbid renal disease
Prior Procedural Therapies for AF/AFL:
[ ] Cardioversion
[ ] Pulmonary Vein Isolation
[ ] Posterior Wall Isolation
[ ] Additional lines (Specify)
[ ] Surgical Estrada-MAZE or PVI (Specify)
Procedure Performed:
X AF ablation procedure (95328) -- includes LA/CS pacing, trans-septal, 3D mapping, + ICE
[ ] +IV drug (56669)
[ ] +Other Arrhythmia (82001)
[ ] +Other AF Line/ablation (65469)
Risks and expected recovery has been explained in detail. Alternative options have been explored, and in a shared-decision making fashion we have decided that this was the most appropriate procedure.
Method
NPO status confirmed. Grounding pad applied. Defibrillator pads applied. Continuous surface ECG, pulse oximetry, and blood pressure were monitored. Procedure was performed under general anesthesia, with anesthesia services.
Both groins were clipped, prepped with Chloraprep, and draped in sterile fashion. Time out was called. Local anesthesia administered with bupivacaine. The right and left femoral vein were accessed for catheter placement, using ultrasound guidance
(images saved to record), micro-puncture needle/wire, and modified seldinger technique. 3 sheaths were placed. The following catheters were used:
[ ] Tacticath SE (D/F Curve) ablation catheter
X Viewflex 9Fr ICE catheter
X Inquiry decapolar 6Fr diagnostic catheter
[ ] CRD Hex 6Fr
[ ] Arctic Front Advance Cryoballoon ([ ]28mm[ ]23mm)
[ ] Achieve Advance mapping catheter ([ ]15mm[ ]20mm)
X FlexCath Contour 10 Fr with PulseSelect PFA Catheter
X Advisor HD Grid Mapping Catheter, SE
[ ] Acuson AcuNav 8 Fr ICE catheter
[ ]Other: [ ]
Intracardiac ultrasound (ICE) was carefully advanced into the right atrium to guide sheath placement over a J-wire, catheter placement, guide trans-septal puncture, identify potential complications, identify anatomic structures and ensure proper
contact between ablation catheter and tissue.
Heparin was given prior to trans-septal puncture. Heparin was given to achieve and maintain a target ACT of 300-400 seconds throughout the procedure.
Trans-septal access was performed under ICE guidance. The trans-septal puncture was performed with a SafeSept wire through a Brockenbrough needle assembly through the steerable sheath. The wire was visualized as it entered the LSPV and system
advanced under ICE guidance and fluoroscopy into the LA. The Brockenbrough needle assembly, SafeSept wire and sheath dilator were removed under negative pressure. LA pressure was measured and recorded.
ICE and 3D mapping was performed to identify relevant cardiac structures. A careful 3D map was created to assess for regions of low-voltage and abnormal electrogram signals using HD grid mapping catheter and PulseSelect catheter. Additional mapping
was performed as outlined below.
Prior to ablation, glycopyrrolate was provided. PulseSelect catheter was advanced over J-wire to the ostium of each vein. Pulmonary vein isolation was performed with ostial and antral lesions in a circumferential manner. Contact was visualized via
EAM, ICE, fluoroscopy, and EGM signals. Following completion of ablation lesions, a post-ablation voltage/activation map was performed in sinus rhythm. Entrance and exit block were confirmed for each vein.
Catheter and sheath were removed from the left atrium and post-ablation intracardiac echo evaluation was consistent with pre-ablation with no changes and no pericardial effusion and there is no left atrial thrombus or left ventricle thrombus seen.
Electrophysiology study was performed. Hemostasis was obtained with figure of 8 stitch for each groin and with manual pressure. Protamine was used for reversal.
Estimated Blood Loss
5 mL
Complications
None
Fluoroscopy: 4.8 minutes; 17.07 mGy; DAP 2.08
LA Pressure: Pre 5 mmHg, post 10 mmHg
Baseline Intervals:
Rhythm: SR
IN: 131 ms
QRS: 92 ms
QT: 365 ms
QTc: 425 ms
A-A: 737 ms
R-R: 737 ms
Post-Procedure Intervals:
IN: 125 ms
QRS: 113 ms
QT: 412 ms
QTc: 440 ms
A-A: 875 ms
R-R: 875 ms
AVWB: 310 ms
AVNERP: 600/290 ms
AERP: 600/230 ms
Recommendations
- Bedrest with straight-leg precautions as ordered
- Anticipate same day discharge if patient meeting clinical metrics
- Resume home medications as indicated
- Ok to resume anticoagulation tonight if patient and groin sites stable
- PPI daily for 30 days
- Plan for follow-up in office as scheduled
Tai Deng DO, FACC, RS
Clinical Cardiac Full Stack Developer
cc: Dr Raquel Brown; Dr Jose Roberto De La Cruz
[2024-11-09 08:33] LABS: ACT-LR - POC 250 Seconds (116-155)
[2024-11-09 08:54] LABS: ACT-LR - POC 298 Seconds (116-155)
[2024-11-09 09:17] LABS: ACT-LR - POC 319 Seconds (116-155)
[2024-11-09 09:31] LABS: ACT-LR - POC 137 Seconds (116-155)
--- NOTE | 2024-11-09 14:28 | W.PN.UPDATE ---
Update Note
Progress Note Update
74 yo WF s/p PVI (Same day). She denies cp, sob, jannet diet, voiding, amb w/o dizziness, EKG SR, R fem site c/d/i no HT, soft. She will resume Eliquis tonight and continue metoprolol. She will continue omeprazole daily for 30 days. Activity
restrictions reviewed. She will f/u Dr. Alvarado in 3 mo. She is for d/c home after 230pm.
== END 2024-11-09 14:29 | disposition home or self-care (01) ==
LOC: CATH 05:54
PROVIDERS: ATTENDING PHYSICIAN Internal Medicine Cardiovascular Disease; FAMILY PHYSICIAN Family Medicine; OTHER PHYSICIAN Internal Medicine Cardiovascular Disease
DX: I48.0 Paroxysmal atrial fibrillation (principal); I45.10 Unspecified right bundle-branch block; I10 Essential (primary) hypertension; G47.33 Obstructive sleep apnea (adult) (pediatric); M81.0 Age-related osteoporosis without current pathological fracture; E78.5 Hyperlipidemia, unspecified; G40.909 Epilepsy, unspecified, not intractable, without status epilepticus; M48.54XS Collapsed vertebra, not elsewhere classified, thoracic region, sequela of fracture; M19.90 Unspecified osteoarthritis, unspecified site; Z85.828 Personal history of other malignant neoplasm of skin; Z88.8 Allergy status to other drugs, medicaments and biological substances; G43.909 Migraine, unspecified, not intractable, without status migrainosus; K44.9 Diaphragmatic hernia without obstruction or gangrene; K21.9 Gastro-esophageal reflux disease without esophagitis; G62.9 Polyneuropathy, unspecified; Z87.891 Personal history of nicotine dependence; E66.9 Obesity, unspecified; Z68.31 Body mass index [BMI] 31.0-31.9, adult; Z79.01 Long term (current) use of anticoagulants; Z79.899 Other long term (current) drug therapy; Z79.02 Long term (current) use of antithrombotics/antiplatelets
CPT/HCPCS: C1732; C1730; C1769; C1894; C1766; C1733; 85347; 86900; 86901; 93005; 93656

== ENCOUNTER → 2024-12-27 12:27 | Outpatient (REF) | payer MEDICARE, OTHER, SELFPAY | LOC: WDC 12:27 | PROVIDERS: ATTENDING PHYSICIAN Obstetrics & Gynecology Gynecology; FAMILY PHYSICIAN Family Medicine | DX: Z12.31 Encounter for screening mammogram for malignant neoplasm of breast (principal) | CPT/HCPCS: 77063; 77067 ==